=== PATIENT | male | born 1950 | race Caucasian/White ===

== ENCOUNTER 2024-05-22 14:42 | Inpatient (IN) ==
--- NOTE | 2024-05-22 15:06 | Emergency Department Note ---
Impression & Plan Complicated UTI (urinary tract infection), Bacteremia, Acute hyponatremia ED Provider Note NAME: DEEP FOSTER AGE: 74 SEX: M : 1950 ARRIVES VIA: Walk-In INFORMANT: Patient ED PROVIDER(S): Jonathan Wallace DO CHIEF COMPLAINT: Gram-negative bacilli and blood HPI: Patient is a 74-year-old male who presents to the ER as at the end of March he was having issues with constipation and urinary retention. He had a Lopez placed for about 10 days and following this attempted to straight cath. He was doing this under the guidance of urology. He ended up having a fever last week until today. He has been on 2 different types of antibiotics. His blood cultures grew out gram-negative bacilli and were currently still waiting for these to differentiate and consequently patient was called back to the ER for admission. He denies any headache or change in vision. He does feel weak and rundown but better than 2 days ago. No chest pain or shortness of breath. No belly pain. No dysuria, urgency, or frequency currently. ADDITIONAL HISTORY OBTAINED: Per HPI Chronic Medical/Social Conditions Affecting Care: Per HPI PAST MEDICAL HISTORY:See Below PAST SURGICAL HISTORY:See Below FAMILY HISTORY:See Below SOCIAL HISTORY:See Below HOME MEDICATIONS:See Below ALLERGIES:See Below VITALS:See Below PHYSICAL EXAMINATION: GENERAL: Sitting up in bed, alert, well appearing, well nourished, no distress, non-toxic EYE EXAM: normal conjunctiva. OROPHARYNX: mucous membranes are moist LUNGS: Clear to auscultation. Normal chest wall mechanics HEART: no murmurs, S1 normal and S2 normal ABDOMEN: abdomen soft, non-tender, normo-active bowel sounds, no masses, no rebound or guarding. BACK: Back is symmetrical on inspection and there is no deformity, no midline tenderness, no CVA tenderness. SKIN: no rashes and no bruising UPPER EXTREMITIES: upper extremities are grossly normal. LOWER EXTREMITIES: No pitting edema. NEURO EXAM: Normal sensorium, cranial nerves II-XII grossly intact, normal speech, no gross weakness of arms, no gross weakness of legs. MEDICAL DECISION MAKING: Patient is a 74-year-old male who was called back to the ER for bacteremia as he was just recently here and blood cultures were positive. He is currently on antibiotics since is feeling slightly better. IV was established blood work was obtained. Labs show no significant leukocytosis or anemia. BMP along LFTs bilirubin was unremarkable. Lactate was normal. Mag was normal. Pro-Adarsh normal. Troponin was unremarkable. UA with bacteria whites and reds. Consults/Care Managements Discussions: Per MDM Triage Nursing notes reviewed. Limited review of prior medical records performed Vital Signs: reviewed and remarkable for HTN Differential diagnosis: Differential diagnosis: Etiologies such as viral syndrome, otitis, pharyngitis, pneumonia, influenza, meningitis, urinary tract infection, sepsis, bacteremia, as well as others were entertained. ER treatment provided: See below Diagnostics interpreted by me include EKG and cardiac monitoring as listed below: -Cardiac Monitoring: An order was placed for continuous cardiac monitoring. The monitor shows a rate of 70 with sinus rhythm. -ECG: none -Laboratory studies:Interpreted by me as stated above in MDM and shown below. Imaging studies: Xrays: As interpreted by me:none CTs show: none Procedures:none Critical Care: None Past Med/Surg History Problem List (Updated 05/22/24 @ 20:22 by Jonathan Wallace DO) Acute hyponatremia (Acute) Bacteremia (Acute) Complicated UTI (urinary tract infection) (Acute) Benign localized prostatic hyperplasia with lower urinary tract symptoms (LUTS) Medical History (Updated 05/22/24 @ 20:22 by Jonathan Wallace DO) PVC (premature ventricular contraction) Idiopathic polyneuropathy Hypertension Arthritis Elevated PSA Stomach ulcer Lentigo maligna Surgical History (Updated 05/22/24 @ 17:08 by Maren Salinas PA-C) History of eye surgery History of total hip replacement History of appendectomy Family History Uncle Prostate cancer paternal uncle Grandfather (Paternal) Prostate cancer Father Heart disease Hypertension Social History Smoking Status: Former smoker Hx Alcohol Use: Yes Hx Substance Use: No Preferred Language: Cymraes Communication Ability: Effective Visual Impairment: No Limitations Hearing Ability: Normal Belt Operator Required: No Beliefs That Will Affect Care: None marital status: Current Living Situation: Spouse current occupational status: retired Feels Safe at Home: Yes Diet: regular Allergies Allergies Allergy/AdvReac Type Severity Reaction Status Date / Time No Known Allergies Allergy Verified 05/22/24 16:10 Home Meds Home Medications Medication Instructions Recorded Confirmed allopurinol 300 mg tablet 300 mg PO QPM 07/04/19 05/22/24 acetaminophen 650 mg 650 mg PO Q8H PRN Pain 07/08/19 05/22/24 tablet,extended release nebivolol 5 mg tablet (Bystolic) 5 mg PO QPM 05/30/20 05/22/24 Saccharomyces boulardii 250 mg 250 mg PO DAILY 02/10/22 05/22/24 capsule (Florastor) loratadine 10 mg tablet (Claritin) 10 mg PO DAILY PRN Allergy Symptoms 01/06/23 05/22/24 ascorbic acid (vitamin C) 500 mg 500 mg PO Q OTHER DAY 05/07/24 05/22/24 tablet (Vitamin C) cholecalciferol (vitamin D3) 25 25 mcg PO DAILY 05/07/24 05/22/24 mcg (1,000 unit) tablet (Vitamin D3) cyanocobalamin (vitamin B-12) 1,000 mcg PO DAILY 05/07/24 05/22/24 1,000 mcg tablet (Vitamin B-12) polyethylene glycol 3350 17 gram 17 g PO DAILY Constipation 05/07/24 05/22/24 oral powder packet (Miralax) amoxicillin 875 mg-potassium 1 tab PO BID 05/22/24 05/22/24 clavulanate 125 mg tablet artificial 1 drp ophthalmic (eye) 5XD PRN Dry 05/22/24 05/22/24 tears(jailqkp-aoxhqsgi-blrfuiu) Eye(S) 0.1 %-0.3 %-0.2 % eye drops (GenTeal Tears Moderate) docusate sodium 100 mg capsule 100 mg PO BID 05/22/24 05/22/24 (Colace) Results & Data (ED) Vital Signs Vital Signs - 24 hr 05/22/24 14:44 05/22/24 14:59 05/22/24 14:59 Temperature 36.6 C 36.7 C Temperature Source Oral Oral Pulse Rate 67 65 Pulse Rate from SpO2 Sensor Respiratory Rate 18 18 Respiratory Effort / Characteristics Non-Labored Spontaneous Respiratory Depth Normal Respiratory Pattern Regular Blood Pressure 145/88 H Blood Pressure Mean 107 Pulse Oximetry 96 99 Oxygen Delivery Method Room Air Room Air Sepsis Recent Fever Within 48 Hours Yes Sepsis New/Unexplained Change in Mental Status N/A Sepsis Action Taken by Nursing No Action Required 05/22/24 15:03 05/22/24 15:15 05/22/24 15:33 Temperature Temperature Source Pulse Rate 63 67 58 L Pulse Rate from SpO2 Sensor 64 58 L Respiratory Rate 21 16 Respiratory Effort / Characteristics Respiratory Depth Respiratory Pattern Blood Pressure 143/90 H 138/70 Blood Pressure Mean 107 92 Pulse Oximetry 95 95 Oxygen Delivery Method Room Air Room Air Sepsis Recent Fever Within 48 Hours Sepsis New/Unexplained Change in Mental Status Sepsis Action Taken by Nursing 05/22/24 15:51 05/22/24 16:06 05/22/24 16:18 Temperature Temperature Source Pulse Rate 60 58 L 60 Pulse Rate from SpO2 Sensor 57 L 55 L 57 L Respiratory Rate 16 22 16 Respiratory Effort / Characteristics Respiratory Depth Respiratory Pattern Blood Pressure 124/72 118/71 124/71 Blood Pressure Mean 89 86 88 Pulse Oximetry 98 99 97 Oxygen Delivery Method Room Air Room Air Room Air Sepsis Recent Fever Within 48 Hours Sepsis New/Unexplained Change in Mental Status Sepsis Action Taken by Nursing 05/22/24 16:30 Temperature Temperature Source Pulse Rate 57 L Pulse Rate from SpO2 Sensor 57 L Respiratory Rate 20 Respiratory Effort / Characteristics Respiratory Depth Respiratory Pattern Blood Pressure 126/78 Blood Pressure Mean 94 Pulse Oximetry 96 Oxygen Delivery Method Room Air Sepsis Recent Fever Within 48 Hours Sepsis New/Unexplained Change in Mental Status Sepsis Action Taken by Nursing Laboratory Data 05/22/24 14:56 05/22/24 14:56 Lab Results 05/22/24 05/22/24 Range/Units 14:56 15:05 WBC 7.06 (4.8-10.8) K/ul RBC 4.81 (4.70-6.10) M/uL Hgb 15.5 (14.0-18.0) g/dl Hct 46.8 (42.0-52.0) % MCV 97.3 (80.0-100.0) fL MCH 32.2 (25.0-34.0) pg MCHC 33.1 (32.0-36.0) g/dL RDW Std Deviation 45.7 (36.4-46.3) fL RDW Coeff of Keeley 12.8 (11.5-14.5) % Plt Count 183 (130-400) K/uL MPV 9.3 L (9.4-12.4) fL Immature Gran % (Auto) 0.4 % Neut % (Auto) 59.8 % Lymph % (Auto) 24.9 % [place] % (Auto) 12.2 % Eos % (Auto) 2.0 % Baso % (Auto) 0.7 % Neut # (Auto) 4.22 (1.40-6.50) K/uL Lymph # (Auto) 1.76 (1.20-3.40) K/uL [place] # (Auto) 0.86 H (0.11-0.59) K/uL Eos # (Auto) 0.14 (0.00-0.50) K/uL Baso # (Auto) 0.05 (0.00-0.20) K/uL Immature Gran # (Auto) 0.03 (0.01-0.20) K/uL Sodium 135 L (136-145) mmol/L Potassium 4.1 (3.5-5.1) mmol/L Chloride 102 (98-107) mmol/L Carbon Dioxide 27 (21-32) mmol/L Anion Gap 6 (3-11) BUN 15 (6-23) mg/dl Creatinine 0.79 (0.6-1.4) mg/dl Est Cr Clr Drug Dosing 89.9 ml/min Est GFR ( Amer) 101.1 ml/min Est GFR (Non-Af Amer) 87.2 ml/min BUN/Creatinine Ratio 19.0 (10-20) Glucose 99 (70-99(Fasting)) mg/dl Lactate 1.0 (0.4-2.0) mmol/L Calcium 9.5 (8.6-10.3) mg/dl Magnesium 2.2 (1.7-2.4) mg/dl Total Bilirubin 0.7 (0.2-1.0) mg/dl Direct Bilirubin 0.1 (0-0.2) mg/dl AST 21 (13-39) U/L ALT 21 (7-52) U/L Alkaline Phosphatase 55 (34-104) U/L Troponin I High Sens 4.1 (0-20) pg/ml Total Protein 7.2 (6.0-8.3) gm/dl Albumin 4.1 (3.4-5.0) gm/dl Procalcitonin 0.42 (0-0.5) ng/ml Urine Color See Comment Urine Appearance Slightly Cloudy (Clear) Urine pH Not Reportable Ur Specific [place] 1.005 (1.000-1.030) Urine Protein Not Reportable Urine Glucose (UA) Not Reportable Urine Ketones Not Reportable Urine Blood Not Reportable Urine Nitrite Not Reportable Urine Bilirubin Not Reportable Urine Urobilinogen Not Reportable Ur Leukocyte Esterase Not Reportable Urine RBC >20 H (0-2) /hpf Urine WBC 6-10 H (0-5) /hpf Ur Epithelial Cells 3-5 H (0-2) /hpf Urine Bacteria 1+ H (None Seen) Administered Medications Discontinued Medications Piperacillin Sod/Tazobactam Sod (Zosyn) 4.5 gm in 100 mls @ 200 mls/hr IV NOW ONE Stop: 05/22/24 15:17 Last Infusion: 05/22/24 16:15 Dose: Infused Documented By: [facility] Admin: 05/22/24 15:29 Dose: 200 mls/hr Documented By: [facility] [place] Discharge Plan Visit Data Chief Complaint: Abnormal Labs/Diagnostic Testing Stated Complaint: BACTERIA IN BLOOD IN URINE ED Provider: Jonathan Wallace Discharge Problem: Complicated UTI (urinary tract infection), Bacteremia, Acute hyponatremia Patient Disposition: Admitted As Inpatient Discharge Instructions Interventions: ED Discharge Assessment Last Done: 05/22/24 19:58
[2024-05-22 15:20] LABS: Basophils # (auto) 0.05 K/uL (0.00-0.20); Basophils % (auto) 0.7 %; Eosinophils # (auto) 0.14 K/uL (0.00-0.50); Hematocrit (blood only) 46.8 % (42.0-52.0); Hemoglobin 15.5 g/dl (14.0-18.0); Immature Granulocytes # (auto) 0.03 K/uL (0.01-0.20); Immature Granulocytes % (auto) 0.4 %; Lymphocytes # (auto) 1.76 K/uL (1.20-3.40); Lymphocytes % (auto) 24.9 %; Mean Corpuscular Hemoglobin 32.2 pg (25.0-34.0); Mean Corpuscular Hgb Conc 33.1 g/dL (32.0-36.0); Mean Corpuscular Volume 97.3 fL (80.0-100.0); Mean Platelet Volume 9.3 fL (9.4-12.4); Monocytes # (auto) 0.86 K/uL (0.11-0.59); Monocytes % (auto) 12.2 %; Neutrophils # (auto) 4.22 K/uL (1.40-6.50); Neutrophils % (auto) 59.8 %; Platelet Count 183 K/uL (130-400); RDW Coefficient of Variation 12.8 % (11.5-14.5); RDW Standard Deviation 45.7 fL (36.4-46.3); Red Blood Count 4.81 M/uL (4.70-6.10); White Blood Count 7.06 K/ul (4.8-10.8)
[2024-05-22 15:28] LABS: Appearance Urine Slightly Cloudy (Clear)
[2024-05-22 15:29] LABS: Specific Gravity Urine 1.005 (1.000-1.030)
[2024-05-22] MEDS: PIPERACILLIN/TAZOBACTAM 4.5 GM/100 ML BAG IV ONE (15:29)
[2024-05-22 15:33] LABS: Bacteria Urine 1+ (None Seen); RBC Urine >20 /hpf (0-2)
[2024-05-22 15:42] LABS: Albumin Level 4.1 gm/dl (3.4-5.0); Bilirubin Direct 0.1 mg/dl (0-0.2); Bilirubin,Total 0.7 mg/dl (0.2-1.0); Calcium 9.5 mg/dl (8.6-10.3); Creatinine Clr Calc Pharmacy 89.9 ml/min; Est GFR (African American) 101.1 ml/min; Est GFR (Non-African American) 87.2 ml/min; Magnesium 2.2 mg/dl (1.7-2.4); Potassium 4.1 mmol/L (3.5-5.1); Total Protein 7.2 gm/dl (6.0-8.3)
[2024-05-22 15:48] LABS: Troponin I High Sensitivity 4.1 pg/ml (0-20)
--- NOTE | 2024-05-22 16:21 | History & Physical Report ---
Date of Service May 22, 2024 Assessment & Plan (1) Bacteremia: (2) Complicated UTI (urinary tract infection): (3) Benign localized prostatic hyperplasia with lower urinary tract symptoms (LUTS): Plan: This is a 74yo M with a PMH of BPH, urinary retention following with [facility] called back to ED today for positive preliminary blood cultures. Was started on cefdinir on 05/19 but urine culture grew Klyuvera resistant to third generation cephalosporin but sensitive to Augmentin (switched on 05/21) Pharmacy called to return to ED today after 05/19 blood clx showed gram negative bacilli Blood cultures also showed CONS in 1/4 bottles which is likely a contamination Continue Zosyn until blood cultures finalize Ongoing hematuria since self cathing 1 week ago, meyer now in place - Hgb stable, VSS. Has not yet seen urologist and is requesting to see while admitted. Consulted [facility] urology (4) Hypertension: Plan: Continue Nebivolol (brought from home, sent to pharmacy for labeling) DVT Ppx: SCDs in setting of hematuria Code status: FULL PCP: Gavin ([facility]) Dispo: observation med surg Patient seen in collaboration with Dr. Turcios. Please see addendum. I spent a total of 75 minutes coordinating, documenting, and providing care for this patient excluding time spent in the performance of separately billed services. History of Present Illness Chief Complaint: abn labs Primary Care Provider: Drake Alonso M.D. This is a 74yo M with a PMH of BPH, urinary retention following with [facility]rology called back to ED today for positive preliminary blood cultures. Has been in ED multiple times this month for urinary issues. Was seen in ED on 05/07 with meyer catheter placement. Had a trial to void at urology office and was sent home with instruction to straight cath, which he was able to do twice. The third time, he was met with resistance and started to bleed. Returned to ED on 05/19 for urinary symptoms and attempted a straight cath after per urology recommendation. Was discharged home on cefdinir course and instruction to follow up with urology. With preliminary positive blood cultures, ED pharmacy called patient yesterday and instructed him to switch to Augmentin. Has taken 3 doses. Was then called again today by pharmacy and directed to come back to ED for IV abx and awaiting finalization of blood cultures. Endorses fever since then despite antibiotics. Tmax 100 F. Preliminary blood cultures from 05/19 grew out gram negative bacilli. Still feels weak and rundown but better than 2 days ago. No fever today. Nausea has resolved. No headache, CP, SOB, N/V, abd pain, dysuria, diarrhea or constipation. Patient mentions pain in his lower back when he feels a "blockage" in catheter and improves when meyer is irrigated. Allergies Allergy/AdvReac Type Severity Reaction Status Date / Time No Known Allergies Allergy Verified 05/22/24 16:10 Home Medications Medication Instructions Recorded Confirmed Type allopurinol 300 mg tablet 300 mg PO QPM 07/04/19 05/22/24 History acetaminophen 650 mg 650 mg PO Q8H PRN Pain 07/08/19 05/22/24 History tablet,extended release nebivolol 5 mg tablet (Bystolic) 5 mg PO QPM 05/30/20 05/22/24 History Saccharomyces boulardii 250 mg 250 mg PO DAILY 02/10/22 05/22/24 History capsule (Florastor) loratadine 10 mg tablet (Claritin) 10 mg PO DAILY PRN Allergy Symptoms 01/06/23 05/22/24 History ascorbic acid (vitamin C) 500 mg 500 mg PO Q OTHER DAY 05/07/24 05/22/24 History tablet (Vitamin C) cholecalciferol (vitamin D3) 25 25 mcg PO DAILY 05/07/24 05/22/24 History mcg (1,000 unit) tablet (Vitamin D3) cyanocobalamin (vitamin B-12) 1,000 mcg PO DAILY 05/07/24 05/22/24 History 1,000 mcg tablet (Vitamin B-12) polyethylene glycol 3350 17 gram 17 g PO DAILY Constipation 05/07/24 05/22/24 History oral powder packet (Miralax) amoxicillin 875 mg-potassium 1 tab PO BID 05/22/24 05/22/24 History clavulanate 125 mg tablet artificial 1 drp ophthalmic (eye) 5XD PRN Dry 05/22/24 05/22/24 History tears(ljitarg-ehfoeyoq-gmogonb) Eye(S) 0.1 %-0.3 %-0.2 % eye drops (GenTeal Tears Moderate) docusate sodium 100 mg capsule 100 mg PO BID 05/22/24 05/22/24 History (Colace) Past Med/Surg History Problem List (Updated 05/22/24 @ 17:08 by Maren Salinas PA-C) Bacteremia Complicated UTI (urinary tract infection) Benign localized prostatic hyperplasia with lower urinary tract symptoms (LUTS) Medical History (Updated 05/22/24 @ 17:08 by Maren Salinas PA-C) PVC (premature ventricular contraction) Idiopathic polyneuropathy Hypertension Arthritis Elevated PSA Stomach ulcer Lentigo maligna Surgical History (Updated 05/22/24 @ 17:08 by Maren Salinas PA-C) History of eye surgery History of total hip replacement History of appendectomy Family History Uncle Prostate cancer paternal uncle Grandfather (Paternal) Prostate cancer Father Heart disease Hypertension Social History Smoking Status: Former smoker Hx Alcohol Use: Yes Hx Substance Use: No Preferred Language: Danish Communication Ability: Effective Visual Impairment: No Limitations Hearing Ability: Normal Payer Specialist Required: No Beliefs That Will Affect Care: None marital status: Current Living Situation: Spouse current occupational status: retired Feels Safe at Home: Yes Diet: regular Review of Systems Review of Systems: At least ten systems reviewed and negative except as noted in the HPI. Physical Exam Physical Exam: Please see Dr. Turcios's addendum for physical exam. Results & Data Results & Data Vital Signs (Past 12 Hours) Vital Signs Temp Pulse Resp BP Pulse Ox O2 Del Method 05/22/24 15:15 67 05/22/24 14:59 65 18 99 Room Air 05/22/24 14:59 36.7 C 05/22/24 14:44 36.6 C 67 18 145/88 H 96 Room Air Laboratory Results Short CBC 05/22/24 Range/Units 14:56 WBC 7.06 (4.8-10.8) K/ul Hgb 15.5 (14.0-18.0) g/dl Hct 46.8 (42.0-52.0) % Plt Count 183 (130-400) K/uL BMP 05/22/24 14:56 Sodium 135 L Potassium 4.1 Chloride 102 Carbon Dioxide 27 BUN 15 Creatinine 0.79 Glucose 99 Calcium 9.5 Liver Function 05/22/24 Range/Units 14:56 Total Bilirubin 0.7 (0.2-1.0) mg/dl Direct Bilirubin 0.1 (0-0.2) mg/dl AST 21 (13-39) U/L ALT 21 (7-52) U/L Alkaline Phosphatase 55 (34-104) U/L Albumin 4.1 (3.4-5.0) gm/dl Urine 05/22/24 Range/Units 15:05 Urine Color See Comment Urine Appearance Slightly Cloudy (Clear) Urine pH Not Reportable Ur Specific [place] 1.005 (1.000-1.030) Urine Protein Not Reportable Urine Glucose (UA) Not Reportable Supervising Physician Co-Signing Physician Notes Patient was seen and examined with Maren Salinas PA-C at bedside. Chart reviewed. Case discussed with Maren TELLES and agree with the documentation above. In summary, this is a 74 year old male with HTN, BPH, urinary retention on meyer who was called back to the ED for bacteremia. He was in the ED on 05/19 for UTI and discharged on cefdinir, it was changed to Augmentin yesterday morning after the urine culture showed Klyuvera resistant to third generation cephalosporin but sensitive to Augmentin. He was called today after blood clx showed GNB, also showed CONS in 1/4 bottles which is likely a contamination. States he is still having intermittent fever at home, but overall feeling better. Continues to have hematuria with clots and did manual irrigation at home, last done 2 pm today. Family requesting to see Dr Palmer. Repeat UA and blood clx were sent from ED and was started on zosyn. Will admit with iv zosyn, await final blood clx r esults, follow up on repeat clx results. Consult urology. Rest as per the note above. On exam- General: Lying comfortably in bed, not in distress, on room air HEENT: EOMI, PUMA, MMM Chest: Clear breath sounds bilaterally, no wheezes or crackles CVS: Regular rate and rhythm, normal heart sounds, no murmur Abdomen: Soft, non tender, not distended, normal bowel sounds Neuro: Awake, alert, oriented, conversing well, non focal Extremities: No cyanosis, clubbing or edema Genitourinary: Meyer with hematuria
[2024-05-22] MEDS ORDERED: ONDANSETRON INJ 2 MG/ML 2 ML VIAL IV PRN (20:15)
[2024-05-22] MEDS ORDERED: LORATADINE 10 MG TAB PO PRN (20:15)
[2024-05-22] MEDS ORDERED: ARTIFICIAL TEARS OP PRN (20:19)
[2024-05-22] MEDS ORDERED: NEBIVOLOL 5 MG PO SCH (21:00)
[2024-05-22] MEDS ORDERED: PIPERACILLIN/TAZOBACTAM 4.5 GM/100 ML BAG IV ONE (21:00)
[2024-05-22] MEDS: DOCUSATE SODIUM 100 MG CAP PO SCH (21:12)
[2024-05-22] MEDS: allopurinoL 300 MG TAB PO SCH (21:12)
[2024-05-22] MEDS: PIPERACILLIN/TAZOBACTAM 4.5 GM in DEXTROSE 5% MINI-B 100 ML IV SCH (21:13)
[2024-05-22] MEDS: NEBIVOLOL 5 MG PO SCH (21:28)
[2024-05-23] MEDS: ACETAMINOPHEN 325 MG TAB PO PRN (04:27)
[2024-05-23 06:32] LABS: Hematocrit (blood only) 40.9 % (42.0-52.0); Hemoglobin 13.7 g/dl (14.0-18.0); Mean Corpuscular Hemoglobin 32.2 pg (25.0-34.0); Mean Corpuscular Hgb Conc 33.5 g/dL (32.0-36.0); Mean Corpuscular Volume 96.2 fL (80.0-100.0); Mean Platelet Volume 9.3 fL (9.4-12.4); Platelet Count 167 K/uL (130-400); RDW Coefficient of Variation 12.5 % (11.5-14.5); RDW Standard Deviation 44.4 fL (36.4-46.3); Red Blood Count 4.25 M/uL (4.70-6.10); White Blood Count 5.91 K/ul (4.8-10.8)
[2024-05-23 07:30] LABS: Calcium 8.6 mg/dl (8.6-10.3); Potassium 4.5 mmol/L (3.5-5.1)
[2024-05-23 07:36] LABS: BUN Creatinine Ratio 16.5 (10-20); Creatinine Clr Calc Pharmacy 89.9 ml/min; Est GFR (African American) 101.1 ml/min; Est GFR (Non-African American) 87.2 ml/min
[2024-05-23] MEDS: CYANOCOBALAMIN (B-12) 500 MCG TABLET PO SCH (07:47)
[2024-05-23] MEDS: CHOLECALCIFEROL 25 MCG (1000 UNITS) TAB PO SCH (07:47)
[2024-05-23] MEDS: SACCHAROMYCES BOULARDII 250 MG CAP PO SCH (07:47)
[2024-05-23] MEDS: ASCORBIC ACID 500 MG TAB PO SCH (07:48)
[2024-05-23] MEDS: POLYETHYLENE (MIRALAX) 17 GM PACK PO SCH (07:48)
--- NOTE | 2024-05-23 09:10 | Urology Consultation ---
Date of Consultation May 23, 2024 Assessment & Plan (1) Hematuria: (2) Complicated UTI (urinary tract infection): (3) Bacteremia: (4) Benign localized prostatic hyperplasia with lower urinary tract symptoms (LUTS): 74 yo/M with BPH and urinary retention admitted for complicated UTI/positive blood cultures Urology is consulted for hematuria Afebrile, stable vitals Labs todaycreatinine 0.79, no leukocytosis, hemoglobin 13.7 Urine culture 05/19/2024 with Kluyvera cryocrescens Blood cultures 05/19/2024 with coag negative staph and gram-negative bacilli Repeat urine and blood cultures (05/22) are pending Continue with broad-spectrum antibiotics and narrow per sensitivity data when available Patient has had hematuria since catheter replacement, but seem to be improving Bilateral hydronephrosis has improved with Lopez catheter in place Recommend maintain Lopez catheter for management of urinary retentionplan to maintain until urology follow-up Okay to gently hand irrigate catheter as needed for catheter obstruction Will plan for cystoscopy as an outpatient after acute infection has resolved will follow, please contact our service with any additional questions or concerns History of Present Illness Reason for Consultation: Hematuria Attending Physician: Mel Henson MD History of Present Illness This is a 74-year-old male with past medical history of BPH and urinary retention who was called back to the emergency department today for positive preliminary blood cultures. He has been to the ED multiple times recently for urinary issues. He was seen in ED on 05/07 for acute urinary retention and Lopez catheter was placed. He failed voiding trial on 05/17/2024 in the urology office, but was taught CIC to perform at home. Patient had difficulty with CIC at home and returned to the urology office with elevated PVR, Lopez catheter was placed and drained bloody urine. He returned to the emergency department on 05/19/2024 with concern for fevers at home. His urinalysis was notable for 3+ blood, 2+ LE with pyuria, urine and blood cultures were drawn. He was treated with IV ceftriaxone in ED and was discharged to home on cefdinir. He was called back to the emergency department on 05/22/2024 due to prelim positive blood cultures. Labs todaycreatinine 0.79, WBC 5.91, hemoglobin 13.7 Urine culture 05/19/2024 with Kluyvera cryocrescens Blood cultures 05/19/2024 with coag negative staph and gram-negative bacilli Urine culture 05/22/2024 pending Blood culture 05/22/2024 pending On IV Zosyn CT A/P 05/07 w/ con showed prostatomegaly with evidence of outlet obstruction resulting in distended urinary bladder with mild to moderate bilateral hydroureteronephrosis. CT A/P 05/19 wo con showed no hydronephrosis, Lopez catheter terminates in the urinary bladder, wall thickening of the urinary bladder noted. Patient seen and examined at bedside this morning. He is awake and sitting up in bed. Reports he generally feels okay. Denies suprapubic or flank discomfort. He reports hematuria is ongoing since his catheter replacement in the urology office, but reports that it seems to be improving. He reports his urine was previously a dark [place]. His Lopez is patent and draining a thin, translucent light to medium palomo red urine, no clots noted. He denies requiring manual irrigation overnight. Denies nausea, vomiting, fever or chills at present. Allergies Allergy/AdvReac Type Severity Reaction Status Date / Time No Known Allergies Allergy Verified 05/22/24 16:10 Home Medications Medication Instructions Recorded Confirmed Type allopurinol 300 mg tablet 300 mg PO QPM 07/04/19 05/22/24 History acetaminophen 650 mg 650 mg PO Q8H PRN Pain 07/08/19 05/22/24 History tablet,extended release nebivolol 5 mg tablet (Bystolic) 5 mg PO QPM 05/30/20 05/22/24 History Saccharomyces boulardii 250 mg 250 mg PO DAILY 02/10/22 05/22/24 History capsule (Florastor) loratadine 10 mg tablet (Claritin) 10 mg PO DAILY PRN Allergy Symptoms 01/06/23 05/22/24 History ascorbic acid (vitamin C) 500 mg 500 mg PO Q OTHER DAY 05/07/24 05/22/24 History tablet (Vitamin C) cholecalciferol (vitamin D3) 25 25 mcg PO DAILY 05/07/24 05/22/24 History mcg (1,000 unit) tablet (Vitamin D3) cyanocobalamin (vitamin B-12) 1,000 mcg PO DAILY 05/07/24 05/22/24 History 1,000 mcg tablet (Vitamin B-12) polyethylene glycol 3350 17 gram 17 g PO DAILY Constipation 05/07/24 05/22/24 History oral powder packet (Miralax) amoxicillin 875 mg-potassium 1 tab PO BID 05/22/24 05/22/24 History clavulanate 125 mg tablet artificial 1 drp ophthalmic (eye) 5XD PRN Dry 05/22/24 05/22/24 History tears(tmufwli-svbrpkvt-xvfqvaz) Eye(S) 0.1 %-0.3 %-0.2 % eye drops (GenTeal Tears Moderate) docusate sodium 100 mg capsule 100 mg PO BID 05/22/24 05/22/24 History (Colace) Patient History Medical History PVC (premature ventricular contraction) Idiopathic polyneuropathy Hypertension Arthritis Elevated PSA Stomach ulcer Lentigo maligna Surgical History History of eye surgery History of total hip replacement History of appendectomy Family History Uncle Prostate cancer paternal uncle Grandfather (Paternal) Prostate cancer Father Heart disease Hypertension Social History Smoking Status: Heavy tobacco smoker Tobacco Type: Cigarettes and Smokeless Tobacco (Dip or Chew) Smoking End Date: 2001; Do You Dip or Chew Tobacco: No; Hx Alcohol Use: Yes Alcohol type: wine Hx Substance Use: No Preferred Language: Portuguese Communication Ability: Effective Visual Impairment: No Limitations Hearing Ability: Normal Industrial Insulator Required: No Beliefs That Will Affect Care: None marital status: Current Living Situation: Spouse current occupational status: retired Other Information That Helps Us Care for You: No Feels Safe at Home: Yes Safety Concerns: Feels Safe At This Time Diet: regular Assistive Devices: Glasses Review of Systems Review of Systems: All systems reviewed & are unremarkable except as noted in HPI & below Physical Exam Constitutional: well developed and well nourished; no acute distress Respiratory: normal respiratory effort; no respiratory distress and no labored breathing Gastrointestinal (Abdomen): Inspection/Auscultation: abdomen normal to inspection Musculoskeletal: Head/Neck/Chest: normocephalic Neurologic: moves all extremities and awake Psychiatric: Orientation: alert and oriented x 3 Genitourinary: Lopez patent and draining thin, translucent light/medium palomo red urine, no clots Results & Data Vital Signs (Past 12 Hours) Vital Signs Temp Pulse Resp BP Pulse Ox O2 Del Method 05/23/24 07:02 36.6 C 55 L 16 103/65 99 Room Air PG Care Time/CCT Total # of Minutes Spent Total Time Spent with Patient: Total time spent is greater than 50% in coordination of care (as documented) at patient's floor/unit and/or counseling patient: Coding Level of Care Code 89958 INT INP/OBS CARE 2/55MIN Diagnoses Hematuria R31.9 Complicated UTI (urinary tract infection) N39.0 Bacteremia R78.81 Benign localized prostatic hyperplasia with lower urinary tract symptoms (LUTS) N40.1
--- NOTE | 2024-05-23 09:15 | Hospitalist Progress Note ---
Date of Service May 23, 2024 Assessment & Plan (1) Bacteremia: (2) Complicated UTI (urinary tract infection): (3) Benign localized prostatic hyperplasia with lower urinary tract symptoms (LUTS): (4) Hypertension: Plan Pt is a 74yo M with a PMHx significant for BPH, urinary retention following with [facility] urology who was called back to the ED for positive preliminary blood cultures. Bacteremia Complicated UTI Chronic Indwelling meyer catheter BPH Presented with fever to the ED on 05/19, treated with IV rocephin for a complicated UTI and discharged home with po cefdinir Was started on cefdinir on 05/19 but urine culture grew Klyuvera intermediate status to third generation cephalosporin but sensitive to Augmentin (switched on 05/21) ED called pt to return to ED today after 05/19 blood cx showed gram negative bacilli in 1/4 bottles Blood cultures also showed CONS in 1/4 bottles which is likely a contamination Serology positive for MSSA and staph epidermis UA repeated this admission and suggestive of infection, urine Cx growing once more (05/22) Blood Cx x 2 sets repeated this admission as well on 05/22 Continue IV Zosyn until blood cultures finalize ID consulted, appreciate further recs Hematuria Ongoing hematuria since self cathing 1 week ago, meyer now in place Hgb stable but noted drop overnight on 05/22 from hgb 15.5 to 13.7 Per admitting team, has not yet seen urologist and is requesting to see while a dmitted [facility] urology consulted, appreciate further recs Monitor H/H Hypertension Continue Nebivolol (brought from home, sent to pharmacy for labeling) Continue to monitor Continue other home meds as ordered DVT Ppx: SCDs in setting of hematuria Code status: FULL PCP: Gavin ([facility]) Dispo: PT/OT ordered for further recs Admission and Anticipated Discharge Date Admission Date: May 22, 2024 Subjective Pt was seen laying in bed. States that the hematuria is improving in color, was darker with clots previously. Denies recent fevers. Review of Systems Review of Systems: All systems reviewed & are unremarkable except as noted in Subjective Physical Exam Physical Exam: General: Alert, oriented. No acute distress Skin: No noted rashes or bruises Psych: Appropriate mood and affect Neuro: No gross deficits while laying in bed HEENT: NC/AT Chest: Nontender to palpation. CV: RRR Resp: Breath sounds clear bilaterally, no increased effort of breathing. Abdomen: Soft, nontender, nondistended. Extremities: No edema in lower extremities bilaterally Results & Data Results & Data Vital Signs (Past 12 Hours) Vital Signs Temp Pulse Resp BP Pulse Ox O2 Del Method 05/23/24 07:02 36.6 C 55 L 16 103/65 99 Room Air
[2024-05-24 06:33] LABS: Basophils # (auto) 0.06 K/uL (0.00-0.20); Basophils % (auto) 1.1 %; Eosinophils # (auto) 0.09 K/uL (0.00-0.50); Eosinophils % (auto) 1.6 %; Hematocrit (blood only) 41.4 % (42.0-52.0); Immature Granulocytes # (auto) 0.03 K/uL (0.01-0.20); Immature Granulocytes % (auto) 0.5 %; Lymphocytes # (auto) 2.21 K/uL (1.20-3.40); Lymphocytes % (auto) 39.7 %; Mean Corpuscular Hemoglobin 32.5 pg (25.0-34.0); Mean Corpuscular Hgb Conc 33.8 g/dL (32.0-36.0); Mean Corpuscular Volume 96.1 fL (80.0-100.0); Mean Platelet Volume 9.1 fL (9.4-12.4); Monocytes # (auto) 0.61 K/uL (0.11-0.59); Neutrophils # (auto) 2.57 K/uL (1.40-6.50); Neutrophils % (auto) 46.1 %; Platelet Count 172 K/uL (130-400); RDW Coefficient of Variation 12.5 % (11.5-14.5); RDW Standard Deviation 44.1 fL (36.4-46.3); Red Blood Count 4.31 M/uL (4.70-6.10); White Blood Count 5.57 K/ul (4.8-10.8)
[2024-05-24 07:22] LABS: Calcium 8.6 mg/dl (8.6-10.3); Magnesium 2.2 mg/dl (1.7-2.4); Potassium 4.1 mmol/L (3.5-5.1)
[2024-05-24 07:28] LABS: BUN Creatinine Ratio 16.1 (10-20); Creatinine Clr Calc Pharmacy 76.4 ml/min; Est GFR (African American) 92.1 ml/min; Est GFR (Non-African American) 79.5 ml/min
--- NOTE | 2024-05-24 09:05 | Hospitalist Progress Note ---
Date of Service May 24, 2024 Assessment & Plan (1) Bacteremia: (2) Complicated UTI (urinary tract infection): (3) Benign localized prostatic hyperplasia with lower urinary tract symptoms (LUTS): (4) Hypertension: Plan Pt is a 74yo M with a PMHx significant for BPH, urinary retention following with [facility] urology who was called back to the ED for positive preliminary blood cultures. Poss. Bacteremia Complicated UTI - CAUTI Chronic Indwelling meyer catheter BPH Presented with fever to the ED on 05/19, treated with IV rocephin for a complicated UTI and discharged home with po cefdinir Was started on cefdinir on 05/19 but urine culture grew Klyuvera intermediate status to third generation cephalosporin but sensitive to Augmentin (switched on 05/21) ED called pt to return to ED after 05/19 blood cx showed gram negative bacilli in 1/4 bottles Blood cultures also showed CONS in 1/4 bottles which is likely a contamination Serology positive for MSSA and staph epidermis UA repeated this admission , Ucultx (05/22) - negative Blood Cx x 2 sets repeated this admission as well on 05/22 - NGTD Continued IV Zosyn while hospitalized ID consulted, appreciate further recs - recommend treatment for CAUTI caused by Klyvera with Bactrim DS bid (total abx course to be 10 days). Blood cultx likely contaminant. Hematuria hematuria since self cathing 1 week ago, meyer now in place Hgb stable but noted drop overnight on 05/22 from hgb 15.5 to 13.7 Hematuria now resolved Current Hgb 14 [facility] urology consulted - Bilateral hydronephrosis has improved with Meyer catheter in place Recommend maintain Meyer catheter for management of urinary retentionplan to maintain until urology follow-up Okay to gently hand irrigate catheter as needed for catheter obstruction Keep outpatient urology follow-up as scheduled to discuss ongoing management Hypertension Continue Nebivolol (brought from home, sent to pharmacy for labeling) Continue to monitor Continue other home meds as ordered DVT Ppx: SCDs in setting of hematuria Code status: FULL PCP: Gavin ([facility]) Admission and Anticipated Discharge Date Admission Date: May 23, 2024 Subjective Pt seen in follow up of hematuria, UTI, Meyer cath Urology consulted Currently pt is laying in bed in NAD Meyer cath placed and draining clear yellow urine Pt says he is feeling well. Denies any fever, chills, chest pain, shortness of breath, abd. pain. He is inquiring about going home. Review of Systems Review of Systems: All systems reviewed & are unremarkable except as noted in Subjective Physical Exam Physical Exam: General: Lying comfortably in bed, not in distress, on room air HEENT: EOMI, PUMA, MMM Chest: Clear breath sounds bilaterally, no wheezes or crackles CVS: Regular rate and rhythm, normal heart sounds, no murmur Abdomen: Soft, non tender, not distended, normal bowel sounds Neuro: Awake, alert, oriented, conversing well, non focal Extremities: No LE edema, moves extremities Genitourinary: Meyer with clear yellow urine Results & Data Results & Data Vital Signs (Past 12 Hours) Vital Signs Temp Pulse Resp BP Pulse Ox O2 Del Method 05/24/24 07:01 36.4 C L 58 L 14 126/78 97 Room Air Laboratory Results 05/24/24 Range/Units 05:48 WBC 5.57 (4.8-10.8) K/ul RBC 4.31 L (4.70-6.10) M/uL Hgb 14.0 (14.0-18.0) g/dl Hct 41.4 L (42.0-52.0) % MCV 96.1 (80.0-100.0) fL MCH 32.5 (25.0-34.0) pg MCHC 33.8 (32.0-36.0) g/dL RDW Std Deviation 44.1 (36.4-46.3) fL RDW Coeff of Keeley 12.5 (11.5-14.5) % Plt Count 172 (130-400) K/uL MPV 9.1 L (9.4-12.4) fL Immature Gran % (Auto) 0.5 % Neut % (Auto) 46.1 % Lymph % (Auto) 39.7 % [place] % (Auto) 11.0 % Eos % (Auto) 1.6 % Baso % (Auto) 1.1 % Neut # (Auto) 2.57 (1.40-6.50) K/uL Lymph # (Auto) 2.21 (1.20-3.40) K/uL [place] # (Auto) 0.61 H (0.11-0.59) K/uL Eos # (Auto) 0.09 (0.00-0.50) K/uL Baso # (Auto) 0.06 (0.00-0.20) K/uL Immature Gran # (Auto) 0.03 (0.01-0.20) K/uL Sodium 139 (136-145) mmol/L Potassium 4.1 (3.5-5.1) mmol/L Chloride 106 (98-107) mmol/L Carbon Dioxide 29 (21-32) mmol/L Anion Gap 4 (3-11) BUN 15 (6-23) mg/dl Creatinine 0.93 (0.6-1.4) mg/dl Est Cr Clr Drug Dosing 76.4 ml/min Est GFR ( Amer) 92.1 ml/min Est GFR (Non-Af Amer) 79.5 ml/min BUN/Creatinine Ratio 16.1 (10-20) Glucose 95 (70-99(Fasting)) mg/dl Calcium 8.6 (8.6-10.3) mg/dl Phosphorus 4.0 (2.5-4.9) mg/dl Magnesium 2.2 (1.7-2.4) mg/dl Medications Administered Current Inpatient Medications Acetaminophen (Acetaminophen 325 Mg Tab) 650 mg PO Q4H PRN PRN Reason: pain/fever Stop: 06/21/24 20:14 Last Admin: 05/24/24 08:09 Dose: 650 mg Allopurinol (Allopurinol 300 Mg Tab) 300 mg PO QPM [facility] Stop: 06/21/24 20:59 Last Admin: 05/23/24 20:35 Dose: 300 mg Artificial Tears (Artificial Tears) 1 drops OP 5XDQ3H PRN PRN Reason: Dry Eye(S) Stop: 06/21/24 20:18 Ascorbic Acid (Ascorbic Acid 500 Mg Tab) 500 mg PO Q2D@0900 [facility] Stop: 06/22/24 08:59 Last Admin: 05/23/24 07:48 Dose: 500 mg Cyanocobalamin (Cyanocobalamin (B-12) 500 Mcg Tablet) 1,000 mcg PO DAILY [facility] Stop: 06/22/24 08:59 Last Admin: 05/24/24 08:04 Dose: 1,000 mcg Docusate Sodium (Docusate Sodium 100 Mg Cap) 100 mg PO BID [facility] Stop: 06/21/24 20:59 Last Admin: 05/24/24 08:04 Dose: 100 mg Piperacillin Sod/Tazobactam (Sod 4.5 gm/ Dextrose) 100 mls @ 25 mls/hr IV Q8H [facility]ACIE; Protocol Stop: 06/01/24 20:59 Last Admin: 05/24/24 05:18 Dose: 25 mls/hr Loratadine (Loratadine 10 Mg Tab) 10 mg PO DAILY PRN PRN Reason: Allergy Symptoms Stop: 06/21/24 20:14 Nebivolol 5mg ~ Non- Formulary Patient's Own Med 1 each PO QPM [facility] Stop: 06/21/24 20:59 Last Admin: 05/23/24 20:35 Dose: 1 tabs Ondansetron HCl (Ondansetron Inj 2 Mg/Ml 2 Ml Vial) 4 mg IV Q6H PRN PRN Reason: Nausea Stop: 06/21/24 20:14 Polyethylene Glycol (Polyethylene (Miralax) 17 Gm Pack) 17 gm PO DAILY [facility] Stop: 06/22/24 08:59 Last Admin: 05/24/24 08:04 Dose: 17 gm Saccharomyces Boulardii (Saccharomyces Boulardii 250 Mg Cap) 250 mg PO DAILY [facility] Stop: 06/22/24 08:59 Last Admin: 05/24/24 08:05 Dose: 250 mg Vitamin D (Cholecalciferol 25 Mcg (1000 Units) Tab) 25 mcg PO DAILY [facility] Stop: 06/22/24 08:59 Last Admin: 05/24/24 08:05 Dose: 25 mcg
--- NOTE | 2024-05-24 09:52 | Urology Progress Note ---
Date of Service May 24, 2024 Assessment & Plan (1) Hematuria: (2) Complicated UTI (urinary tract infection): (3) Bacteremia: (4) Benign localized prostatic hyperplasia with lower urinary tract symptoms (LUTS): Plan: 74 yo/M with BPH and urinary retention admitted for complicated UTI/positive blood cultures Patient afebrile, hemodynamically stable Labs todaycreatinine 0.93, no leukocytosis, hemoglobin 14.0 Urine culture 05/19/2024 with Kluyvera cryocrescens Blood cultures 05/19/2024 with coag negative staph and bacillus species Repeat urine and blood cultures (05/22) with no growth to date Continue with antibiotics per culture Hematuria has cleared Bilateral hydronephrosis has improved with Lopez catheter in place Recommend maintain Lopez catheter for management of urinary retentionplan to maintain until urology follow-up Okay to gently hand irrigate catheter as needed for catheter obstruction Keep outpatient urology follow-up as scheduled to discuss ongoing management will sign off, please contact our service with any additional questions or concerns Admission and Anticipated Discharge Date Admission Date: May 23, 2024 Subjective Patient feeling better Lopez intact, urine has cleared Denies pain No nausea, vomiting, fever or chills Review of Systems Constitutional: as per Subjective / HPI Genitourinary: + as per Subjective / HPI Physical Exam Constitutional: well developed and well nourished; no acute distress Respiratory: normal respiratory effort; no respiratory distress and no labored breathing Gastrointestinal (Abdomen): Inspection/Auscultation: abdomen normal to inspection Musculoskeletal: Head/Neck/Chest: normocephalic Neurologic: moves all extremities and awake Psychiatric: Orientation: alert and oriented x 3 Genitourinary: Lopez with clear urine Results & Data Vital Signs (Past 12 Hours) Vital Signs Temp Pulse Resp BP Pulse Ox O2 Del Method 05/24/24 07:01 36.4 C L 58 L 14 126/78 97 Room Air PG Care Time/CCT Total # of Minutes Spent Total Time Spent with Patient: Total time spent is greater than 50% in coordination of care (as documented) at patient's floor/unit and/or counseling patient: Coding Level of Care Code 27332 SUB INP/OBS CARE 25MIN Diagnoses Hematuria R31.9 Complicated UTI (urinary tract infection) N39.0 Bacteremia R78.81 Benign localized prostatic hyperplasia with lower urinary tract symptoms (LUTS) N40.1
--- NOTE | 2024-05-24 14:04 | Infectious Disease Consult ---
Date of Service May 24, 2024 Telehealth Information I performed this visit using a real-time telehealth connection between my location and the patients location ([facility]). After connecting through interactive tele-video, patient was identified by name and date of and/or wristband check.Patient (or authorized healthcare district sales representative) was informed that this was a telemedicine visit and it was being conducted confidentially over secure lines. My office door was closed and no one else was present in the room with me.Patient (or authorized healthcare district sales representative) provided consent to proceed with the visit, expressed an understanding of privacy and security of the telemedicine visit, and gave permission to have a hospital district sales representative in the room in order to assist with the visit and to conduct portions of the visit, as needed. I informed the patient (or authorized healthcare district sales representative) that I reviewed their record and presented the opportunity for them to ask any questions regarding the visit today. The patient agreed to participate. Assessment & Plan (1) Positive blood culture: (2) Catheter-associated urinary tract infection: (3) Bladder outlet obstruction: (4) Lopez catheter in place: Plan Both, the bacillus and coagulase-negative staph growing in blood culture are likely contaminants and do not warrant treatment. Please discontinue all current antibiotics and start oral Bactrim DS twice daily to treat CAUTI due to Kluyerva for a total duration of 10 days (including inpatient appropriate antibiotic days). Thank you for consulting Infectious Disease. We will sign off for now. History of Present Illness History of Present Illness Mr. Quesada is a 74-year-old man with medical history of HTN, and BPH with bladder outlet obstruction who was admitted to [facility] on 05/22 after being called for positive blood culture. He was being followed up by Urology as outpatient because of his bladder outlet obstruction and was being educated for intermittent catheterization at [facility]. Because he has been having issues with intermittent catheterization with failure to empty his bladder, he visited the Urology Clinic on 05/18 and the Urology nurse helped place another Lopez catheter. On 05/19, he presents to the emergency department because of fever and was suspected to have urinary tract infection. Two sets of blood culture were sent along with the urine culture and he was sent home on cefdinir. Urine culture from that ED grew Kluyerva and 1 set of blood culture grew bacillus in the anaerobic bottle and coagulase-negative staph in the aerobic bottle. On presentation, he was afebrile and a little hypertensive; otherwise, the rest of the vitals were within normal limits. Id team was consulted for further recommendations and to help guide antibiotic treatment. Allergies Allergy/AdvReac Type Severity Reaction Status Date / Time No Known Allergies Allergy Verified 05/22/24 16:10 Home Medications Medication Instructions Recorded Confirmed Type allopurinol 300 mg tablet 300 mg PO QPM 07/04/19 05/22/24 History acetaminophen 650 mg 650 mg PO Q8H PRN Pain 07/08/19 05/22/24 History tablet,extended release nebivolol 5 mg tablet (Bystolic) 5 mg PO QPM 05/30/20 05/22/24 History Saccharomyces boulardii 250 mg 250 mg PO DAILY 02/10/22 05/22/24 History capsule (Florastor) loratadine 10 mg tablet (Claritin) 10 mg PO DAILY PRN Allergy Symptoms 01/06/23 05/22/24 History ascorbic acid (vitamin C) 500 mg 500 mg PO Q OTHER DAY 05/07/24 05/22/24 History tablet (Vitamin C) cholecalciferol (vitamin D3) 25 25 mcg PO DAILY 05/07/24 05/22/24 History mcg (1,000 unit) tablet (Vitamin D3) cyanocobalamin (vitamin B-12) 1,000 mcg PO DAILY 05/07/24 05/22/24 History 1,000 mcg tablet (Vitamin B-12) polyethylene glycol 3350 17 gram 17 g PO DAILY Constipation 05/07/24 05/22/24 History oral powder packet (Miralax) amoxicillin 875 mg-potassium 1 tab PO BID 05/22/24 05/22/24 History clavulanate 125 mg tablet artificial 1 drp ophthalmic (eye) 5XD PRN Dry 05/22/24 05/22/24 History tears(cmxjdjh-gghkfffq-afjmlav) Eye(S) 0.1 %-0.3 %-0.2 % eye drops (GenTeal Tears Moderate) docusate sodium 100 mg capsule 100 mg PO BID 05/22/24 05/22/24 History (Colace) Patient History Medical History PVC (premature ventricular contraction) Idiopathic polyneuropathy Hypertension Arthritis Elevated PSA Stomach ulcer Lentigo maligna Surgical History History of eye surgery History of total hip replacement History of appendectomy Family History Uncle Prostate cancer paternal uncle Grandfather (Paternal) Prostate cancer Father Heart disease Hypertension Social History Smoking Status: Heavy tobacco smoker Tobacco Type: Cigarettes and Smokeless Tobacco (Dip or Chew) Smoking End Date: 2001; Do You Dip or Chew Tobacco: No; Hx Alcohol Use: Yes Alcohol type: wine Hx Substance Use: No Preferred Language: Kiswahili Communication Ability: Effective Visual Impairment: No Limitations Hearing Ability: Normal 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 Beliefs That Will Affect Care: None marital status: Current Living Situation: Spouse current occupational status: retired Other Information That Helps Us Care for You: No Feels Safe at Home: Yes Safety Concerns: Feels Safe At This Time Diet: regular Assistive Devices: None Review of Systems Constitutional:no fatigue, no fever or chills Cardiovascular:no chest pain, or palpitations Respiratory:no shortness of breath, no cough Gastrointestinal:no abdominal pain or diarrhea :Lopez in place Results & Data Vital Signs (Past 12 Hours) Vital Signs Temp Pulse Resp BP Pulse Ox O2 Del Method 05/24/24 07:01 36.4 C L 58 L 14 126/78 97 Room Air Laboratory Results Microbiology: 05/19: Urine culture growing Kluyvera 05/19: 1 of 2 sets of blood culture growing coagulase-negative staph in the aerobic bottle and bacillus in the anaerobic bottle 05/22: 2 sets of blood culture negative to date 05/22: Urine culture negative Diagnostic Findings Imaging: CT abdomen pelvis performed on 05/19: 1. No hydronephrosis, nephrolithiasis, or obstructive uropathy. 2. Lopez catheter terminates in the urinary bladder. Wall thickening of the urinary bladder, correlate for UTI. 3. Diverticulosis, without acute diverticulitis. No small bowel obstruction. No free intraperitoneal air.
--- NOTE | 2024-05-24 14:39 | Discharge Summary ---
Date of Service May 24, 2024 Admission HPI Per Admitting Provider This is a 74yo M with a PMH of BPH, urinary retention following with [facility] urology called back to ED today for positive preliminary blood cultures. Has been in ED multiple times this month for urinary issues. Was seen in ED on 05/07 with meyer catheter placement. Had a trial to void at urology office and was sent home with instruction to straight cath, which he was able to do twice. The third time, he was met with resistance and started to bleed. Returned to ED on 05/19 for urinary symptoms and attempted a straight cath after per urology recommendation. Was discharged home on cefdinir course and instruction to follow up with urology. With preliminary positive blood cultures, ED pharmacy called patient yesterday and instructed him to switch to Augmentin. Has taken 3 doses. Was then called again today by pharmacy and directed to come back to ED for IV abx and awaiting finalization of blood cultures. Endorses fever since then despite antibiotics. Tmax 100 F. Preliminary blood cultures from 05/19 grew out gram negative bacilli. Still feels weak and rundown but better than 2 days ago. No fever today. Nausea has resolved. No headache, CP, SOB, N/V, abd pain, dysuria, diarrhea or constipation. Patient mentions pain in his lower back when he feels a "blockage" in catheter and improves when meyer is irrigated. Admission Exam Per Admitting Provider General: Lying comfortably in bed, not in distress, on room air HEENT: EOMI, PUMA, MMM Chest: Clear breath sounds bilaterally, no wheezes or crackles CVS: Regular rate and rhythm, normal heart sounds, no murmur Abdomen: Soft, non tender, not distended, normal bowel sounds Neuro: Awake, alert, oriented, conversing well, non focal Extremities: No cyanosis, clubbing or edema Genitourinary: Meyer with hematuria Principal Diagnosis Catheter associated UTI Discharge Exam General: Lying comfortably in bed, not in distress, on room air HEENT: EOMI, PUMA, MMM Chest: Clear breath sounds bilaterally, no wheezes or crackles CVS: Regular rate and rhythm, normal heart sounds, no murmur Abdomen: Soft, non tender, not distended, normal bowel sounds Neuro: Awake, alert, oriented, conversing well, non focal Extremities: No LE edema, moves extremities Genitourinary: Meyer with clear yellow urine Discharge Data Allergies Allergy/AdvReac Type Severity Reaction Status Date / Time No Known Allergies Allergy Verified 05/22/24 16:10 Consultations 05/22/24 16:08 ED Decision to Admit Stat 05/22/24 17:46 Consult Urology Routine 05/23/24 09:15 Consult Infectious Diseases Routine Hospital Course (1) Bacteremia: (2) Complicated UTI (urinary tract infection): (3) Benign localized prostatic hyperplasia with lower urinary tract symptoms (LUTS): (4) Hypertension: Plan Pt is a 74yo M with a PMHx significant for BPH, urinary retention following with [facility] urology who was called back to the ED for positive preliminary blood cultures. Poss. Bacteremia Complicated UTI - CAUTI Chronic Indwelling meyer catheter BPH Presented with fever to the ED on 05/19, treated with IV rocephin for a complicated UTI and discharged home with po cefdinir Was started on cefdinir on 05/19 but urine culture grew Klyuvera intermediate status to third generation cephalosporin but sensitive to Augmentin (switched on 05/21) ED called pt to return to ED after 05/19 blood cx showed gram negative bacilli in 1/4 bottles Blood cultures also showed CONS in 1/4 bottles which is likely a contamination Serology positive for MSSA and staph epidermis UA repeated this admission , Ucultx (05/22) - negative Blood Cx x 2 sets repeated this admission as well on 05/22 - NGTD Continued IV Zosyn while hospitalized ID consulted, appreciate further recs - recommend treatment for CAUTI caused by Klyvera with Bactrim DS bid (total abx course to be 10 days). Blood cultx likely contaminant. Hematuria hematuria since self cathing 1 week ago, meyer now in place Hgb stable but noted drop overnight on 05/22 from hgb 15.5 to 13.7 Hematuria now resolved Current Hgb 14 [facility] urology consulted - Bilateral hydronephrosis has improved with Meyer catheter in place Recommend maintain Meyer catheter for management of urinary retentionplan to maintain until urology follow-up Okay to gently hand irrigate catheter as needed for catheter obstruction Keep outpatient urology follow-up as scheduled to discuss ongoing management Hypertension Continue Nebivolol (brought from home, sent to pharmacy for labeling) Continue to monitor Continue other home meds as ordered Total Time Total Time Spent Total Time Spent (In Minutes): 40 Discharge Plan Discharge Items Patient Disposition: Home - Self-Care Reason For Visit: PRELIM POSITIVE BLOOD CX Discharge Diagnosis: Catheter associated UTI Activity: Per Instructions section Non-emergency contact: Primary Care Provider and Urologist Call non-emergency contact if: you have any medication questions and your symptoms worsen Follow-up/Referrals: Yari Garcia CRNP [Nurse Practitioner] - 05/31/24 11:30 am Drake Alonso M.D. [Primary Care Provider] - 06/02/24 11:00 am Diet: Heart Healthy Addtl Attending Provider Instructions: Follow up with your primary care doctor and urologist. As discussed with urology, keep Meyer catheter until seen in their clinic. Take antibiotic - Bactrim - as prescribed, for catheter associated UTI. Pending Studies at Discharge: Yes Studies:: final results of blood cultx Stand-Alone Forms: [employer], Smoking Cessation Medications and DC Order Prescriptions: New sulfamethoxazole-trimethoprim [Bactrim DS] 800-160 mg Tablet 1 tab PO Q12 8 Days Qty: 16 0RF Continued acetaminophen 650 mg tablet extended release 650 mg PO Q8H PRN (Reason: Pain) loratadine [Claritin] 10 mg tablet 10 mg PO DAILY PRN (Reason: Allergy Symptoms) Bystolic 5 mg tablet 5 mg PO QPM Saccharomyces boulardii [Florastor] 250 mg capsule 250 mg PO DAILY allopurinol 300 mg tablet 300 mg PO QPM docusate sodium [Colace] 100 mg Capsule 100 mg PO BID artificial tear(tiria-ucp-xas) [GenTeal Tears Moderate] 0.1-0.3-0.2 % Drops 1 drp OPHTHALMIC (EYE) 5XD PRN (Reason: Dry Eye(S)) polyethylene glycol 3350 [Miralax] 17 gram Powder In Packet 17 g PO DAILY cyanocobalamin (vitamin B-12) [Vitamin B-12] 1,000 mcg Tablet 1,000 mcg PO DAILY ascorbic acid (vitamin C) [Vitamin C] 500 mg Tablet 500 mg PO Q OTHER DAY cholecalciferol (vitamin D3) [Vitamin D3] 25 mcg (1,000 unit) Tablet 25 mcg PO DAILY Discontinued amoxicillin-pot clavulanate 875-125 mg tablet 1 tab PO BID Rx Instructions: STARTED 05/21/24 FOR 7 DAYS Discharge Orders: Discharge Order (Routine); Ordered 05/24/24 Ordered By: Ryan Mas Admission Data Admit Date/Time: 05/23/24 11:38 Attending Provider: Ryan Mas Admit Provider: Shayan Turcios Primary Care Provider: Drake Alonso Other Providers: Karson Palmer; Shayan Turcios; Conrad Stearns; Oskar Peck; Juju Faulkner; John Salinas I.; Jean Barker II; Lisa Bajwa; Sen Ramirez; Ramirez Crenshaw; Piyush Patel
[2024-05-24] MEDS: SULFAMETHOXAZOLE/TRIMETHOPRIM DS 800/160MG TAB PO SCH (15:03)
== END 2024-05-24 15:41 | disposition home or self-care (01) | DRG 699 ==
LOC: 3E 14:42 → ED 14:42 → SUATTDRO 16:47 → 3E 19:58 → SUATTDRO 05-23 11:38

== ENCOUNTER 2025-10-11 07:48 | Inpatient (IN) ==
--- NOTE | 2025-09-14 11:01 | PAT Medication Instructions ---
Medication Instructions Date of Service September 14, 2025 Home Medications allopurinol 300 mg tablet 300 mg PO QPM acetaminophen 650 mg tablet,extended release 650 mg PO Q8H PRN Pain Saccharomyces boulardii 250 mg capsule (Florastor) 250 mg PO QAM loratadine 10 mg tablet (Claritin) 10 mg PO DAILY PRN Allergy Symptoms ascorbic acid (vitamin C) 500 mg tablet (Vitamin C) 500 mg PO Q OTHER DAY cholecalciferol (vitamin D3) 25 mcg (1,000 unit) tablet (Vitamin D3) 25 mcg PO cyanocobalamin (vitamin B-12) 1,000 mcg tablet (Vitamin B-12) 1,000 mcg PO DAILY polyethylene glycol 3350 17 gram oral powder packet (Miralax) 17 g PO UD Constipation artificial tears(nnhmqbs-lnktzoqc-gsxuvvn) 0.1 %-0.3 %-0.2 % eye drops (GenTeal Tears Moderate) 1 drp ophthalmic (eye) 5XD PRN Dry Eye(S) docusate sodium 100 mg capsule (Colace) 100 mg PO QAM metoprolol succinate 50 mg tablet,extended release 24 hr 50 mg PO HS DO NOT take the morning of surgery Saccharomyces boulardii 250 mg capsule (Florastor) 250 mg PO QAM loratadine 10 mg tablet (Claritin) 10 mg PO DAILY PRN Allergy Symptoms ascorbic acid (vitamin C) 500 mg tablet (Vitamin C) 500 mg PO Q OTHER DAY cholecalciferol (vitamin D3) 25 mcg (1,000 unit) tablet (Vitamin D3) 25 mcg PO cyanocobalamin (vitamin B-12) 1,000 mcg tablet (Vitamin B-12) 1,000 mcg PO DAILY polyethylene glycol 3350 17 gram oral powder packet (Miralax) 17 g PO UD Constipation docusate sodium 100 mg capsule (Colace) 100 mg PO QAM Take morning of surgery With a small sip of water, OTHERWISE NOTHING TO EAT OR DRINK AFTER MIDNIGHT: acetaminophen 650 mg tablet,extended release 650 mg PO Q8H PRN Pain (if needed) artificial tears(oyeqrjz-sipsshfu-ubjwael) 0.1 %-0.3 %-0.2 % eye drops (GenTeal Tears Moderate) 1 drp ophthalmic (eye) 5XD PRN Dry Eye(S) (if needed) Take evening before surgery allopurinol 300 mg tablet 300 mg PO QPM acetaminophen 650 mg tablet,extended release 650 mg PO Q8H PRN Pain (if needed) loratadine 10 mg tablet (Claritin) 10 mg PO DAILY PRN Allergy Symptoms (if needed) artificial tears(whpvvtm-ywoarrds-ympaqkj) 0.1 %-0.3 %-0.2 % eye drops (GenTeal Tears Moderate) 1 drp ophthalmic (eye) 5XD PRN Dry Eye(S) (if needed) metoprolol succinate 50 mg tablet,extended release 24 hr 50 mg PO HS Other Notes If you have any questions please call us at [phone] or [phone] or [phone] or [phone]
--- NOTE | 2025-09-22 13:11 | Anesthesiology Consultation ---
Date of Service September 22, 2025 Assessment & Plan (1) Encounter for pre-operative examination: - coags hemolyzed-patient is aware and is going to return to a [place] lab this week to have coags repeated. Orders placed. - chronic dyspnea since COVID infection several years ago. Will request most recent PCP office note, clearance ordered by surgeon reportedly completely 1 week ago-Dr. Drake Baird. If cleared by PCP, acceptable to proceed. - cardiology office visit 03/28/25 [place]: "...stable from a cardiovascular standpoint. He demonstrates excellent control of his blood pressure both at home and in the office today. Fortunately, his symptomatic PVCs have resolved with the change in medications...Follow up 1 year..." Chart Review Chart Review: Patient seen in Pre Admission Testing Teaching & Discussion Pre-Anesthesia Teaching/Discussion Notes: Instructed NPO after midnight before surgery, except medications with 15 cc of water. Medication instructions provided according to the PAT guidelines. History Surgery Operation Date: 10/11/25 09:35 Proposed Procedures p L5-S1 Decompression and Fusion - Hugh Morataya DO Height/Weight Height: 6 ft 1 in Weight: 98.7 kg Allergies Allergy/AdvReac Type Severity Reaction Status Date / Time No Known Allergies Allergy Verified 09/14/25 10:17 Medications Home Medications Medication Instructions Recorded Confirmed Last Taken allopurinol 300 mg tablet 300 mg PO QPM 07/04/19 09/14/25 06/12/24 20:00 acetaminophen 650 mg 650 mg PO Q8H PRN Pain 07/08/19 09/14/25 06/12/24 tablet,extended release Saccharomyces boulardii 250 mg 250 mg PO QAM 02/10/22 09/14/25 06/13/24 08:00 capsule (Florastor) loratadine 10 mg tablet (Claritin) 10 mg PO DAILY PRN Allergy Symptoms 01/06/23 09/14/25 06/12/24 ascorbic acid (vitamin C) 500 mg 500 mg PO Q OTHER DAY 05/07/24 09/14/25 06/12/24 tablet (Vitamin C) cholecalciferol (vitamin D3) 25 25 mcg PO DAILY 05/07/24 09/14/25 06/12/24 mcg (1,000 unit) tablet (Vitamin D3) cyanocobalamin (vitamin B-12) 1,000 mcg PO DAILY 05/07/24 09/14/25 06/12/24 1,000 mcg tablet (Vitamin B-12) polyethylene glycol 3350 17 gram 17 g PO UD Constipation 05/07/24 09/14/25 06/13/24 09:00 oral powder packet (Miralax) artificial 1 drp ophthalmic (eye) 5XD PRN Dry 05/22/24 09/14/25 06/14/24 07:30 tears(pyepomi-dgrmkiif-avzbeje) Eye(S) 0.1 %-0.3 %-0.2 % eye drops (GenTeal Tears Moderate) docusate sodium 100 mg capsule 100 mg PO QAM 05/22/24 09/14/25 06/12/24 (Colace) metoprolol succinate 50 mg 50 mg PO HS 06/14/24 09/14/25 06/13/24 20:00 tablet,extended release 24 hr Past Medical History Medical History (Updated 09/22/25 @ 15:03 by Noni Toussaint PA-C) Arthritis BPH (benign prostatic hyperplasia) Elevated PSA Essential tremor GERD (gastroesophageal reflux disease) controlled, stable per pt Gout Stable, no recent flares Hiatal hernia History of COVID-19 (2021) chronic dyspnea on exertion since illness-denies change or worsening Hypertension controlled, stable per pt Idiopathic polyneuropathy B/L lower extremities Lentigo maligna Hx, x2 (excision) Lumbosacral radiculopathy Macular degeneration + ocular vein occlusion Eyelea injections every 3 months PVC (premature ventricular contraction) Controlled w/nebivolol Follows w/Dr. Thomas Sleep apnea No device Stomach ulcer Remote hx 35+ years ago Patient denies h/o stroke, seizures, heart attack, heart failure, DM, blood clots/DVTs or blood transfusions. Exercise / Class Metabolic Activity III < 4 Walking/Shop/Light housework (shortness of breath with usual activities ongoing since having COVID 2 years ago-denies change or worsening; denies chest discomfort) Past Family History Family History Uncle Prostate cancer paternal uncle Grandfather (Paternal) Prostate cancer Father Heart disease Hypertension Past Surgical History Surgical History (Updated 09/22/25 @ 13:08 by Noni Toussaint PA-C) History of appendectomy History of eye surgery lens implants bilat History of total hip replacement Right History of transurethral resection of prostate LMA, [facility] (06/14/24) Hx of bilateral cataract extraction Hx of rotator cuff surgery left: x3 and bicep tendon repair Past Anesthesia History No Hx of Anesthesia Complications and No Family Hx of Anesthesia Complications History of PONV No Hx of PONV and No Hx of Motion Sickness Social History Smoking Status: Former smoker (quit 40 years ago) Do You Dip or Chew Tobacco: No (quit 2 weeks ago) Smoking End Date: quit 20 yrs ago Hx Alcohol Use: Yes Alcohol type: wine alcohol intake frequency: a few times a month Hx Substance Use: No substance use type: does not use Review of Systems Patient denies chest pain, fever, chills, cough, wheezing, or palpitations. Physical Exam Vital Signs Vitals BP 153/89 P 75 TEMP 97.9 SP02 96% on RA RESP 18 Physical Patient resting comfortably in chair in no acute distress, alert and oriented, responding appropriately throughout visit Full cervical extension range of motion without pain TMD 3 finger breadths Mallampati Score 3 Dentition: several chipped teeth, several crowns; denies loose teeth, caps, implants or bridges Lungs: normal respiratory effort. Good air movement, clear throughout to au scultation, no adventitious breath sounds Cardiac: regular rate and rhythm, no murmurs noted Carotid arteries: negative bruit bilat Lab Results Anesthesia Preop Results Results Anesthesia Widget: WBC 7.27 K/ul (4.8-10.8) 08/30/25 Hgb 16.5 g/dl (14.0-18.0) 08/30/25 Hct 48.6 % (42.0-52.0) 08/30/25 Plt 153 K/uL (130-400) 08/30/25 Na 139 mmol/L (136-145) 08/30/25 K 4.2 mmol/L (3.5-5.1) 08/30/25 Cl 106 mmol/L (98-107) 08/30/25 CO2 28 mmol/L (21-32) 08/30/25 BUN 14 mg/dl (6-23) 08/30/25 Creat 0.90 mg/dl (0.6-1.4) 08/30/25 Glucose Level 94 mg/dl (70-99(Fasting)) 08/30/25 TSH 1.538 uIu/ml (0.300-4.500) 08/30/25 Free T4 1.05 ng/dl (0.61-1.60) 08/30/25 Urine Color Yellow 09/22/25 Urine Appearance Clear (Clear) 09/22/25 Urine pH 6.0 (4.5-7.5) 09/22/25 Urine Specific [place] 1.016 (1.000-1.030) 09/22/25 Urine Protein Negative (Negative) 09/22/25 Urine Glucose (UA) Negative (Negative) 09/22/25 Urine Ketones Negative (Negative) 09/22/25 Urine Blood Negative (Negative) 09/22/25 Urine Nitrite Negative (Negative) 09/22/25 Urine Bilirubin Negative (Negative) 09/22/25 Urine Urobilinogen Negative (Negative) 09/22/25 Urine Leukocyte Esterase Trace (Negative) H 09/22/25 Urine WBC (Auto) 0-5 /hpf (0-5) 09/22/25 Urine RBC (Auto) 0-2 /hpf (0-2) 09/22/25 Urine Hyaline Casts (Auto) 0-2 /lpf (0-2) 09/22/25 Urine Epithelial Cells (Auto) 0-2 /hpf (0-2) 09/22/25 Urine Bacteria (Auto) None Seen (None Seen) 09/22/25 Blood Type O Positive 09/22/25 Antibody Screen NEGATIVE 09/22/25 Testing Electrocardiogram Date: 09/22/25 NSR, rate 69 bpm Chest X-Ray Date: 09/05/25 No pneumonia seen Echocardiogram Date: 09/15/24 EF 50-55% No regional wall motion abnormalities Mild cLVH Mildly dilated RV Mild mitral regurgitation Hepatic cystlike structure measuring approximately 4.5 x 4.4 cm Type I diastolic dysfunction Other Testing Carotid doppler 09/09/22 1. There is no sonographic evidence of hemodynamically significant stenosis in the right or left carotid arterial system. 2. Antegrade flow is shown in the vertebral arteries.
[~2025-10-11 07:48] MED LIST: DEXAMETHASONE SOD INJ 4 MG/ML VIAL ONE; GLYCOPYRROLATE 0.2 MG/ML VIAL ONE; LIDOCAINE 2% 2 ML VIAL/AMP(20MG/ML) INFIL ONE; MIDAZOLAM HCL 1 MG/ML 2ML VIAL ONE; ONDANSETRON INJ 2 MG/ML 2 ML VIAL ONE; PROPOFOL IV EMULSION 10 MG/ML 20 ML VIAL IV ONE; ROCURONIUM BROMIDE 10 MG/ML 5 ML VIAL IV ONE; SUGAMMADEX SODIUM 200 MG/2 ML VIAL IV ONE
[2025-10-11] MEDS: CeleBREX 200 MG CAP PO SCH (08:21)
[2025-10-11] MEDS: ACETAMINOPHEN 500 MG TAB PO SCH (08:21)
[2025-10-11] MEDS: GABAPENTIN 300 MG CAP PO SCH (08:21)
[2025-10-11] MEDS: LR 60ML/HR IV SCH (08:22)
[2025-10-11] MEDS: LR 15ML/HR IV SCH (08:22)
[2025-10-11] MEDS ORDERED: ATROPINE SULFATE 0.1 MG/ML 10ML SYR IV PRN (09:10)
[2025-10-11] MEDS ORDERED: ONDANSETRON INJ 2 MG/ML 2 ML VIAL IV PRN ×2 (09:10→12:33)
--- NOTE | 2025-10-11 09:19 | History & Physical Bridge Note ---
Date of Service October 11, 2025 History & Physical Bridge Note I have examined the patient, reviewed the History & Physical and in the interval since the performance of the History & Physical I have noted the following changes of clinical significance: no changes noted
--- NOTE | 2025-10-11 09:20 | History & Physical Report ---
Date of Service October 11, 2025 Assessment & Plan (1) Spondylolisthesis, lumbar region: Plan: L5-S1 decompression and fusion History of Present Illness Chief Complaint: Back and leg pain Primary Care Provider: Drake Alonso M.D. This is a 75-year-old male that presents with chronic persistent back and leg pain after failing course of nonoperative care is here for surgical invention. Allergies Allergy/AdvReac Type Severity Reaction Status Date / Time No Known Allergies Allergy Verified 10/11/25 08:03 Home Medications Medication Instructions Recorded Confirmed Type allopurinol 300 mg tablet 300 mg PO QPM 07/04/19 10/11/25 History acetaminophen 650 mg 650 mg PO Q8H PRN Pain 07/08/19 10/11/25 History tablet,extended release Saccharomyces boulardii 250 mg 250 mg PO QAM 02/10/22 10/11/25 History capsule (Florastor) loratadine 10 mg tablet (Claritin) 10 mg PO DAILY PRN Allergy Symptoms 01/06/23 10/11/25 History polyethylene glycol 3350 17 gram 17 g PO UD Constipation 05/07/24 10/11/25 History oral powder packet (Miralax) artificial 1 drp ophthalmic (eye) 5XD PRN Dry 05/22/24 10/11/25 History tears(phizjez-sxwxmata-rynbwtd) Eye(S) 0.1 %-0.3 %-0.2 % eye drops (GenTeal Tears Moderate) docusate sodium 100 mg capsule 100 mg PO QAM 05/22/24 10/11/25 History (Colace) cholecalciferol (vitamin D3) 25 50 mcg PO DAILY 10/06/25 10/11/25 History mcg (1,000 unit) tablet (Vitamin D3) nebivolol 5 mg tablet 5 mg PO DAILY 10/06/25 10/11/25 History Past Med/Surg History Problem List (Updated 10/11/25 @ 09:20 by Hugh Morataya DO) Spondylolisthesis, lumbar region Lumbosacral radiculopathy Lopez catheter in place Benign localized prostatic hyperplasia with lower urinary tract symptoms (LUTS) Medical History (Updated 10/11/25 @ 09:20 by Hugh Morataya DO) Lumbosacral radiculopathy BPH (benign prostatic hyperplasia) Hiatal hernia GERD (gastroesophageal reflux disease) controlled, stable per pt Gout Stable, no recent flares Essential tremor History of COVID-19 (2021) chronic dyspnea on exertion since illness-denies change or worsening Sleep apnea No device Macular degeneration + ocular vein occlusion Eyelea injections every 3 months PVC (premature ventricular contraction) Controlled w/nebivolol Follows w/Dr. Thomas Idiopathic polyneuropathy B/L lower extremities Hypertension controlled, stable per pt Arthritis Elevated PSA Stomach ulcer Remote hx 35+ years ago Lentigo maligna Hx, x2 (excision) Surgical History History of transurethral resection of prostate A, [facility] (06/14/24) Hx of bilateral cataract extraction Hx of rotator cuff surgery left: x3 and bicep tendon repair History of eye surgery lens implants bilat History of total hip replacement Right History of appendectomy Family History Uncle Prostate cancer paternal uncle Grandfather (Paternal) Prostate cancer Father Heart disease Hypertension Social History Smoking Status: Former smoker (quit 40 years ago) Tobacco Type: Cigarettes and Smokeless Tobacco (Dip or Chew) Smoking End Date: quit 20 yrs ago; Second Hand Exposure: No; Do You Dip or Chew Tobacco: No (quit 2 weeks ago); Tobacco Cessation Education Requested by Patient: No Hx Alcohol Use: Yes Alcohol type: wine Hx Substance Use: No Preferred Language: Peruvian Communication Ability: Effective Visual Impairment: No Limitations Hearing Ability: Normal Jr. Systems Administrator Required: No Beliefs That Will Affect Care: None marital status: Current Living Situation: Spouse current occupational status: retired Other Information That Helps Us Care for You: No Feels Safe at Home: Yes Safety Concerns: Feels Safe At This Time Diet: regular Assistive Devices: Glasses Physical Exam Physical Exam: Patient is alert and oriented Heart regular rhythm Lungs clear Results & Data Results & Data Vital Signs (Past 12 Hours) Vital Signs Temp Pulse Resp BP Pulse Ox O2 Del Method 10/11/25 08:05 36.6 C 66 20 155/101 H 98 Room Air
[2025-10-11] MEDS: BUPIVACAINE/EPINEPHRINE 0.25% 1:200,000 30 ML VIAL ONE (10:32)
[2025-10-11] MEDS: ceFAZolin 330 MG/ML 1 GM VIAL ONE ×2 (11:07→11:08)
[2025-10-11] MEDS: FLOSEAL HEMOSTATIC MATRIX 10ML TOP ONE (11:07)
--- NOTE | 2025-10-11 11:17 | Operative Report ---
Post Operative Report Pre & Post Diagnosis Operation Date: 10/11/25 09:15 Pre-Op Diagnosis: #1 lumbosacral Spondylosis with Radiculopathy #2 lumbar spondylolisthesis Post-Op Diagnosis: Same I identified the patient and participated in the time-out.: Yes Procedure Operation Date: 10/11/25 09:15 Actual Procedures #1 lumbar decompression bilateral middle facetectomies and foraminotomies L5-S1. #2 posterior spinal fusion L5-S1. #3 placement posterior instrumentation L5-S1 using Lopez. #4 interbody fusion L5-S1. #5 placement of Spira 12 x 26 mm x 2 at L5-S1. #6 placement of Proteus combined with Koros bone graft in the posterior lateral gutters and os design in the right space. #7 application of versa wrap of the exposed dura. Surgeon Hugh Morataya, Financial Management Consultant Lia Burton Estimated Blood Loss 250 Findings Consistent with Post-Op Diagnosis Specimens None Indications This is a 75-year-old male presents manage diagnosis after failing course of nonoperative care is here for surgical invention. Description of Procedure Patient is met with identified informed consent obtained. Patient was then taken to the operative suite underwent a patient placed in a prone position on the Wes table on top of the Brock frame. All bony promises well-padded eyes inspected to ensure no external pressure placed upon them. This point the lumbar spine was prepped and draped in normal sterile fashion. Sharp dissection with the assistance of Bovie cautery performed down to and exposing the lamina and transverse processes of L5 and sacral ala bilaterally. Obvious bilateral pars defect and spina bifida noted. A complete laminectomy of L5 was then performed including bilateral medial facetectomies and foraminotomies addressing all neural compression. Aravind screws were then placed in L5 and S1 levels bilaterally with assistance of fluoroscopy and appropriately sized rods placed. By way of transforaminal approach and right a discectomy of L5-S1 was performed endplates curetted to subcortical bleeding bone and a 12 x 26 mm Spira cage tapped into position. Then proceeded to the left transforaminal region at L5- S1. Again discectomy performed. Endplates guided to subcortical bleeding bone and a second 12 x 26 mm Spira cage tapped into position. Please note all cages were packed with os design bone graft. The rods were then locked in a final position bilaterally. The transverse processes of L5 and the sacral ala burred to subcortical bleeding bone. Koros combined with Proteus bone graft placed in the posterolateral gutters. Versa wrap placed of the exposed dura. 15 round HELEN drain inserted. The incision was then closed with 1 Vicryl in the fascia 2-0 Vicryl subcutaneously and 4-0 Monocryl for final skin closure. Steri-Strips sterile dressing placed. Patient waken taken to PACU in stable condition. Please note Lia Burton was present at the entire procedure and all the patient positioning complex portion of the surgery and final skin closure. I attest to the content of the Intraoperative Record and any orders documented therein. Any exceptions are noted below.
--- NOTE | 2025-10-11 11:37 | Fluoroscopy Report ---
FL lumbar spine 2-3V CLINICAL HISTORY: L5-S1 DECOM/FUSION COMPARISON STUDY: None FLUOROSCOPY TIME: 19 seconds FLUOROSCOPY IMAGES: 2 EXPOSURE DOSE: 18 mGy FINDINGS: Fluoroscopy was provided for L5-S1 fusion. IMPRESSION: Intraoperative fluoroscopy. ACT 112: Negative or not required by law. Electronically signed by: Holden Lance M.D. 10/11/2025 11:35 AM
[2025-10-11] MEDS ORDERED: DO NOT ADMINISTER PNEUMOCOCCAL VACCINE PRN (12:33)
[2025-10-11] MEDS ORDERED: diphenhydrAMINE Capsule 25 MG CAP PO PRN (12:33)
[2025-10-11] MEDS ORDERED: HYDROmorphone INJ 0.5 MG/0.5 ML SYR IV PRN (12:33)
[2025-10-11] MEDS ORDERED: ONDANSETRON 4 MG OD TAB PO PRN (12:33)
[2025-10-11] MEDS ORDERED: SOD PHOSPHATE/SOD BIPHOSPHATE ENEMA 132 ML BTL PR PRN (12:33)
[2025-10-11] MEDS ORDERED: LORazepam 0.5 MG TAB PO PRN (12:33)
[2025-10-11] MEDS ORDERED: NALOXONE HCL 0.4 MG/1 ML VIAL/CARP IV PRN (12:33)
[2025-10-11] MEDS ORDERED: MAGNESIUM HYDROXIDE SUSP 30 ML UDC PO PRN (12:33)
[2025-10-11] MEDS ORDERED: DO NOT ADMINISTER FLU VACCINE PRN (12:33)
[2025-10-11] MEDS ORDERED: LORazepam Inj 0.5 MG in SYRINGE 0.25 ML IV PRN (12:33)
[2025-10-11] MEDS ORDERED: METOCLOPRAMIDE HCL INJ 5 MG/ML 2 ML VIAL IV PRN (12:33)
[2025-10-11] MEDS ORDERED: HYDROmorphone INJ 1 MG/ML SYRINGE IV PRN (12:33)
[2025-10-11] MEDS ORDERED: PROMETHAZINE 12.5 MG/50.5 ML BAG IV PRN (12:33)
[2025-10-11] MEDS ORDERED: LORATADINE 10 MG TAB PO PRN (12:33)
[2025-10-11] MEDS ORDERED: ARTIFICIAL TEARS OP PRN (12:40)
[2025-10-11] MEDS: SODIUM CHLORIDE 0.9% 1,000 ML IV SCH (13:01)
[2025-10-11] MEDS: ACETAMINOPHEN 1,000 MG/100 ML VIAL IV PRN (13:09)
--- NOTE | 2025-10-11 13:29 | Anesthesiology Progress Note ---
Date of Service October 11, 2025 Anesthesia Post Procedure Vital Signs Vital Signs: Temp Pulse Pulse Resp BP Pulse Ox O2 Del Method 10/11/25 13:03 74 16 129/83 97 Room Air 10/11/25 12:33 36.3 C L 75 16 133/84 97 Nasal Cannula 10/11/25 12:10 36.4 C L 74 12 137/88 96 Nasal Cannula 10/11/25 12:00 72 14 135/76 96 Nasal Cannula 10/11/25 11:50 74 16 133/87 95 Oxymask 10/11/25 11:40 87 16 129/82 94 Oxymask 10/11/25 11:29 36 C L 85 18 162/88 H 97 Oxymask 10/11/25 08:05 36.6 C 66 20 155/101 H 98 Room Air O2 Flow Rate 10/11/25 13:03 10/11/25 12:33 2 10/11/25 12:10 2 10/11/25 12:00 2 10/11/25 11:50 3 10/11/25 11:40 3 10/11/25 11:29 6 10/11/25 08:05 Pain Intensity Lower Back: Pain Intensity: 4 Transfer of Care Handoff Completed per policy Notes Mental Status: alert / awake / arousable and participated in evaluation Patient Amnestic to Procedure: Yes Nausea / Vomiting: adequately controlled Pain: adequately controlled Airway Patency, RR, SpO2: stable & adequate BP & HR: stable & adequate Hydration State: stable & adequate Anesthetic Complications: no major complications apparent and Pt Satisfied with anesthetic care
--- NOTE | 2025-10-11 14:08 | Hospitalist Consultation ---
Date of Consultation October 11, 2025 Assessment & Plan (1) Spondylolisthesis, lumbar region: (2) Lumbosacral radiculopathy: Status post L5-S1 decompression and fusion on 10/11/2025 Complains of minimal pain at the lower back with radiation of pain and numbness tingling in the lower extremities Management will be as per orthospine Reviewed preop labs and imaging studies Will check hemoglobin and also kidney function electrolytes tomorrow (3) Hypertension: Blood pressure remains stable at 129/83 Will continue with current medications (4) Idiopathic polyneuropathy: Has been ongoing problem Does not feel that it is getting worse Will continue gabapentin (5) GERD (gastroesophageal reflux disease): No acute symptoms Continue Pepcid and Maalox (6) Essential tremor: Seems to be stable (7) BPH (benign prostatic hyperplasia): History of LUTS Denies any symptoms DVT prophylaxis As per orthospine CODE STATUS Full Supervising Physician Co-Signing Physician Notes History of Present Illness Reason for Consultation: Medical management following back surgery Requesting Physician: Dr. Morataya Attending Physician: Hugh Morataya, DO History of Present Illness He is a 75-year-old male with significant past medical history of hypertension, idiopathic pulm neuropathy, prostatic hyperplasia with lower urinary tract symptoms, macular degeneration, sleep apnea on no device, GERD and history of PVC currently underwent L5-S1 decompression and fusion this morning for ongoing back pain and radiculopathy. He has been complaining of pain at the lower back and ongoing numbness and tingling in the extremities Denies any other significant symptoms. Does not have any chest pain, palpitation or shortness of breath. Denies any abdominal pain nausea vomiting or distention. No headache and no blurred vision. Allergies Allergy/AdvReac Type Severity Reaction Status Date / Time No Known Allergies Allergy Verified 10/11/25 08:03 Home Medications Medication Instructions Recorded Confirmed Type allopurinol 300 mg tablet 300 mg PO QPM 07/04/19 10/11/25 History acetaminophen 650 mg 650 mg PO Q8H PRN Pain 07/08/19 10/11/25 History tablet,extended release Saccharomyces boulardii 250 mg 250 mg PO QAM 02/10/22 10/11/25 History capsule (Florastor) loratadine 10 mg tablet (Claritin) 10 mg PO DAILY PRN Allergy Symptoms 01/06/23 10/11/25 History polyethylene glycol 3350 17 gram 17 g PO UD Constipation 05/07/24 10/11/25 History oral powder packet (Miralax) artificial 1 drp ophthalmic (eye) 5XD PRN Dry 05/22/24 10/11/25 History tears(ixbfsvw-vnklduwj-qpcshuc) Eye(S) 0.1 %-0.3 %-0.2 % eye drops (GenTeal Tears Moderate) docusate sodium 100 mg capsule 100 mg PO QAM 05/22/24 10/11/25 History (Colace) cholecalciferol (vitamin D3) 25 50 mcg PO DAILY 10/06/25 10/11/25 History mcg (1,000 unit) tablet (Vitamin D3) nebivolol 5 mg tablet 5 mg PO DAILY 10/06/25 10/11/25 History oxycodone 5 mg tablet 5 mg PO Q6H PRN pain #30 tabs 10/11/25 Rx tramadol 50 mg tablet 50 mg PO Q6H PRN pain, moderate 10/11/25 Rx #30 tabs Patient History Medical History (Updated 10/11/25 @ 09:20 by Hugh Morataya DO) Lumbosacral radiculopathy BPH (benign prostatic hyperplasia) Hiatal hernia GERD (gastroesophageal reflux disease) controlled, stable per pt Gout Stable, no recent flares Essential tremor History of COVID-19 (2021) chronic dyspnea on exertion since illness-denies change or worsening Sleep apnea No device Macular degeneration + ocular vein occlusion Eyelea injections every 3 months PVC (premature ventricular contraction) Controlled w/nebivolol Follows w/Dr. Thomas Idiopathic polyneuropathy B/L lower extremities Hypertension controlled, stable per pt Arthritis Elevated PSA Stomach ulcer Remote hx 35+ years ago Lentigo maligna Hx, x2 (excision) Surgical History History of transurethral resection of prostate LMA, [facility] (06/14/24) Hx of bilateral cataract extraction Hx of rotator cuff surgery left: x3 and bicep tendon repair History of eye surgery lens implants bilat History of total hip replacement Right History of appendectomy Family History Uncle Prostate cancer paternal uncle Grandfather (Paternal) Prostate cancer Father Heart disease Hypertension Social History Smoking Status: Former smoker (quit 40 years ago) Tobacco Type: Cigarettes and Smokeless Tobacco (Dip or Chew) Smoking End Date: quit 20 yrs ago; Second Hand Exposure: No; Do You Dip or Chew Tobacco: No (quit 2 weeks ago); Tobacco Cessation Education Requested by Patient: No Hx Alcohol Use: Yes Alcohol type: wine Hx Substance Use: No Preferred Language: Vietnamese Communication Ability: Effective Visual Impairment: No Limitations Hearing Ability: Normal Business Law Instructor Required: No Beliefs That Will Affect Care: None marital status: Current Living Situation: Spouse current occupational status: retired Other Information That Helps Us Care for You: No Feels Safe at Home: Yes Safety Concerns: Feels Safe At This Time Diet: regular Assistive Devices: Glasses Review of Systems Review of Systems: All systems reviewed and are unremarkable except as noted below Physical Exam Physical Exam: Lying in bed without any acute distress Constitutional: well developed, well nourished, + ill appearing and + obese Eyes: PERRL, conjunctivae normal, anicteric sclerae ENMT: external ear and nose normal, oropharynx normal Neck: trachea midline, no thyromegaly Respiratory: normal respiratory effort, lungs clear to auscultation Cardiovascular: Rate/Rhythm: regular rate and regular rhythm; not tachycardic Heart Sounds: normal S1 and normal S2; no murmur Extremities: no edema Gastrointestinal (Abdomen): Inspection/Auscultation: normal bowel sounds; abdomen not distended Percussion/Palpation: abdomen soft; abdomen nontender Musculoskeletal: No acute arthritis involving any of the joint Neurologic: moves all extremities; no focal motor deficits Lymphatic: no cervical or axillary lymphadenopathy Results & Data Results & Data Vital Signs (Past 12 Hours) Vital Signs Temp Pulse Pulse Resp BP Pulse Ox O2 Del Method 10/11/25 13:36 Room Air 10/11/25 13:03 74 16 129/83 97 Room Air 10/11/25 12:33 36.3 C L 75 16 133/84 97 Nasal Cannula 10/11/25 12:10 36.4 C L 74 12 137/88 96 Nasal Cannula 10/11/25 12:00 72 14 135/76 96 Nasal Cannula 10/11/25 11:50 74 16 133/87 95 Oxymask 10/11/25 11:40 87 16 129/82 94 Oxymask 10/11/25 11:29 36 C L 85 18 162/88 H 97 Oxymask 10/11/25 08:05 36.6 C 66 20 155/101 H 98 Room Air O2 Flow Rate 10/11/25 13:36 10/11/25 13:03 10/11/25 12:33 2 10/11/25 12:10 2 10/11/25 12:00 2 10/11/25 11:50 3 10/11/25 11:40 3 10/11/25 11:29 6 10/11/25 08:05 Medications Administered Current Inpatient Medications Acetaminophen (Acetaminophen 500 Mg Tab) 1,000 mg PO PREOP GRACIE Stop: 10/11/25 18:00 Last Admin: 10/11/25 08:21 Dose: 1,000 mg Acetaminophen (Acetaminophen 500 Mg Tab) 1,000 mg PO Q8H PRN PRN Reason: MILD Pain (1,2,3) & Pre PT Stop: 11/10/25 12:32 Al Hydrox/Mg Hydrox/Simethicone (Aluminum/Magnesium Susp 30 Ml Udc) 30 ml PO Q6H PRN PRN Reason: Dyspepsia Stop: 11/10/25 12:32 Allopurinol (Allopurinol 300 Mg Tab) 300 mg PO QPM GRACIE Stop: 11/10/25 20:59 Artificial Tears (Artificial Tears) 1 drops OP 5XDQ4H PRN PRN Reason: Dryness Stop: 11/10/25 12:39 Atropine Sulfate (Atropine Sulfate 0.1 Mg/Ml 10ml Syr) 0.5 mg IV Q1M PRN PRN Reason: PACU Use-HR<40 &/or Bradycardi Stop: 10/11/25 17:10 Bisacodyl (Bisacodyl 10 Mg Supp) 10 mg TX DAILY PRN PRN Reason: Constipation Stop: 11/10/25 12:32 Celecoxib (Celebrex 200 Mg Cap) 200 mg PO PREOP GRACIE Stop: 10/11/25 18:00 Last Admin: 10/11/25 08:21 Dose: 200 mg Diphenhydramine HCl (Diphenhydramine Capsule 25 Mg Cap) 25 mg PO Q6H PRN PRN Reason: Allergic Rhinitis/Insomnia Stop: 11/10/25 12:32 Ephedrine Sulfate (Ephedrine Sulfate 50 Mg/Ml Amp) 5 mg IV Q5M PRN PRN Reason: PACU Use Only-SBP<90 mmHg Stop: 10/11/25 17:10 Famotidine (Famotidine 20 Mg Tab) 20 mg PO Q12H PRN PRN Reason: Dyspepsia Stop: 11/10/25 12:32 Fentanyl Citrate (Fentanyl Citrate Pf 100 Mcg/2 Ml Vial) 25 mcg IV Q5M PRN PRN Reason: PACU Use Only-Pain Stop: 10/11/25 17:10 Last Admin: 10/11/25 11:55 Dose: 25 mcg Gabapentin (Gabapentin 300 Mg Cap) 300 mg PO PREOP GRACIE Stop: 10/11/25 18:00 Last Admin: 10/11/25 08:21 Dose: 300 mg Hydromorphone HCl (Hydromorphone Inj 0.5 Mg/0.5 Ml Syr) 0.5 mg IV Q3H PRN PRN Reason: MODERATE Pain(4,5,6)/Pre PT Stop: 10/25/25 12:32 Hydromorphone HCl (Hydromorphone Inj 1 Mg/Ml Syringe) 1 mg IV Q3H PRN PRN Reason: SEVERE Pain (7,8,9,10) Stop: 10/25/25 12:32 Hydroxyzine HCl (Hydroxyzine Hcl 25 Mg Tab) 25 mg PO Q8H PRN PRN Reason: Anxiety Stop: 11/10/25 12:32 Lactated Ringer's (Lr) 1,000 mls @ 60 mls/hr IV .[id number] GRACIE Stop: 10/11/25 22:39 Last Admin: 10/11/25 08:22 Dose: Not Given Cefazolin Sodium (Ancef 2000mg) 2,000 mg in 15 mls @ 3.75 mls/min IV PREOP GRACIE; Protocol Stop: 10/11/25 18:00 Last Admin: 10/11/25 09:39 Dose: 3.75 mls/min Lactated Ringer's (Lr) 1,000 mls @ 15 mls/hr IV .Q24H GRACIE Stop: 10/12/25 05:59 Last Infusion: 10/11/25 09:38 Dose: Infused Sodium Chloride (Nss) 1,000 mls @ 100 mls/hr IV .Q10H GRACIE Stop: 10/14/25 12:32 Last Admin: 10/11/25 13:01 Dose: 100 mls/hr Acetaminophen (Ofirmev) 1,000 mg in 100 mls @ 400 mls/hr IV Q8H PRN PRN Reason: MILD Pain (1,2,3) & Pre PT Stop: 10/12/25 12:34 Last Admin: 10/11/25 13:09 Dose: 400 mls/hr Cefazolin Sodium (Ancef 2000mg) 2,000 mg in 15 mls @ 3.75 mls/min IV Q8H GRACIE Stop: 10/14/25 10:03 Promethazine HCl (Phenergan) 12.5 mg in 50.5 mls @ 202 mls/hr IV Q6H PRN PRN Reason: Nausea And Vomiting Stop: 11/10/25 12:32 Lorazepam 0.5 mg/ Syringe 0.5 mls @ 2 mls/min IV Q8H PRN PRN Reason: Sedation/Anxiety Stop: 11/10/25 12:32 Dexamethasone 6 mg/ Syringe 1.5 mls @ 1 mls/min IV DAILY GRACIE Stop: 10/14/25 09:02 Influenza Virus Vaccine Quadrival (Do Not Administer Flu Vaccine) 1 each N/A PRN PRN PRN Reason: Notification Stop: 11/10/25 12:32 Loratadine (Loratadine 10 Mg Tab) 10 mg PO DAILY PRN PRN Reason: Allergy Symptoms Stop: 11/10/25 12:32 Lorazepam (Lorazepam 0.5 Mg Tab) 0.5 mg PO Q8H PRN PRN Reason: Sedation/Anxiety Stop: 11/10/25 12:32 Magnesium Hydroxide (Magnesium Hydroxide Susp 30 Ml Udc) 30 ml PO Q24H PRN PRN Reason: Constipation Stop: 11/10/25 12:32 Metoclopramide HCl (Metoclopramide Hcl Inj 5 Mg/Ml 2 Ml Vial) 10 mg IV Q6H PRN PRN Reason: Nausea &/or Vomiting Stop: 11/10/25 12:32 Metoprolol Tartrate (Metoprolol Tartrate 25 Mg Tab) 25 mg PO BID GRACIE Stop: 11/10/25 20:59 Naloxone HCl (Naloxone Hcl 0.4 Mg/1 Ml Vial/Carp) 0.1 mg IV Q5M PRN PRN Reason: Oversedation/Resp depression Stop: 11/10/25 12:32 Ondansetron HCl (Ondansetron Inj 2 Mg/Ml 2 Ml Vial) 4 mg IV ONCE PRN PRN Reason: PACU Use Only-Nausea/Vomiting Stop: 10/11/25 17:10 Ondansetron HCl (Ondansetron Inj 2 Mg/Ml 2 Ml Vial) 4 mg IV Q6H PRN PRN Reason: Nausea &/or Vomiting Stop: 11/10/25 12:32 Ondansetron HCl (Ondansetron 4 Mg Od Tab) 4 mg PO Q6H PRN PRN Reason: Nausea Stop: 11/10/25 12:32 Oxycodone HCl (Oxycodone Hcl Ir 5 Mg Tab (Immediate Release)) 5 - 10 mg PO Q4H PRN PRN Reason: MOD/SEV Pain & Pre PT Stop: 10/25/25 12:32 Pneumococcal Polyvalent Vaccine (Do Not Administer Pneumococcal Vaccine) 1 each N/A PRN PRN PRN Reason: Notification Stop: 11/10/25 12:32 Polyethylene Glycol (Polyethylene (Miralax) 17 Gm Pack) 17 gm PO Q6 GRACIE Stop: 11/11/25 05:59 Saccharomyces Boulardii (Saccharomyces Boulardii 250 Mg Cap) 250 mg PO QAM GRACIE Stop: 11/11/25 08:59 Senna/Docusate Sodium (Docusate Sodium/Senna 50/8.6mg Tab) 2 tab PO HS GRACIE Stop: 11/10/25 20:59 Sodium Biphosphate/Sodium Phosphate (Sod Phosphate/Sod Biphosphate Enema 132 Ml Btl) 132 ml TX ONE PRN PRN Reason: Constipation Stop: 11/10/25 12:32 Tramadol HCl (Tramadol Hcl 50 Mg Tablet) 50 - 100 mg PO Q4H PRN PRN Reason: MOD/SEV Pain & Pre PT Stop: 11/10/25 12:32 Vitamin D (Cholecalciferol 25 Mcg (1000 Units) Tab) 50 mcg PO DAILY GRACIE Stop: 11/11/25 08:59
[2025-10-11] MEDS: ACETAMINOPHEN 500 MG TAB PO PRN (21:37)
[2025-10-11] MEDS: DOCUSATE SODIUM/SENNA 50/8.6MG TAB PO SCH (21:38)
[2025-10-11] MEDS: METOPROLOL TARTRATE 25 MG TAB PO SCH (21:38)
[2025-10-11] MEDS: ALUMINUM/MAGNESIUM SUSP 30 ML UDC PO PRN (23:32)
[2025-10-12] MEDS: POLYETHYLENE (MIRALAX) 17 GM PACK PO SCH (05:18)
[2025-10-12 06:42] LABS: Hematocrit (blood only) 39.5 % (42.0-52.0); Hemoglobin 13.7 g/dL (14.0-18.0); Immature Granulocytes # (auto) 0.07 K/uL (0.01-0.20); Immature Granulocytes % (auto) 0.5 %; Mean Corpuscular Hemoglobin 32.9 pg (25.0-34.0); Mean Corpuscular Volume 95.0 fL (80.0-100.0); Platelet Count 129 K/uL (130-400); RDW Standard Deviation 47.9 fL (36.4-46.3); Red Blood Count 4.16 M/uL (4.70-6.10); White Blood Count 14.14 K/ul (4.8-10.8)
[2025-10-12 07:16] LABS: Anion Gap 6.0 (3-11); Blood Urea Nitrogen 16.0 mg/dl (6-23); Calcium 8.9 mg/dl (8.6-10.3); Carbon Dioxide 29.0 mmol/L (21-32); Chloride 103.0 mmol/L (98-107); Creatinine Clr Calc Pharmacy 90.6 ml/min; Glucose 118.0 mg/dl (70-99(Fasting)); Magnesium 2.2 mg/dl (1.7-2.4); Potassium 4.2 mmol/L (3.5-5.1); Sodium 138.0 mmol/L (136-145)
--- NOTE | 2025-10-12 08:18 | Orthopedic Progress Note ---
Date of Service October 12, 2025 Assessment & Plan (1) Spondylolisthesis, lumbar region: Plan: Freeman is postoperative day 1 status post L5-S1 decompression and fusion. He is can start physical therapy today. Continue with pain control. Maintain HELEN drain. DVT prophylaxis is in the form teds and SCDs. Work on aggressive bowel regimen. Anticipate discharge home within the next couple of days Admission and Anticipated Discharge Date Admission Date: October 11, 2025 Subjective Freeman is postoperative day 1 status post L5-S1 decompression and fusion. Has some back and buttock pain. HELEN drain output left shift is 20 cc. H&H this morning are 13.7 and 39.5 respectively. No other complaints. Review of Systems Review of Systems: All systems reviewed & are unremarkable except as noted in HPI & below Physical Exam Physical Exam: He is up and ambulatory using a walker going to the restroom no acute distress lumbar dressing is clean dry and intact with functioning HELEN drain Strength intact bilateral lower extremities Results & Data Vital Signs (Past 12 Hours) Vital Signs Temp Pulse Resp BP Pulse Ox O2 Del Method 10/12/25 07:45 36.6 C 77 16 135/76 94 Room Air 10/12/25 05:18 36.8 C 10/12/25 03:12 36.3 C L 72 16 151/84 H 98 Room Air 10/11/25 23:00 36.3 C L 69 18 142/83 H 94 Room Air 10/11/25 21:36 83 142/92 H
[2025-10-12] MEDS: CHOLECALCIFEROL 25 MCG (1000 UNITS) TAB PO SCH (09:03)
[2025-10-12] MEDS: SACCHAROMYCES BOULARDII 250 MG CAP PO SCH (09:04)
[2025-10-12] MEDS: dexAMETHasone 6 MG in SYRINGE 0 ML IV SCH (09:04)
--- NOTE | 2025-10-12 16:09 | Hospitalist Progress Note ---
Date of Service October 12, 2025 Assessment & Plan (1) Spondylolisthesis, lumbar region: (2) Lumbosacral radiculopathy: Plan: -Status post L5-S1 decompression and fusion on 10/11/2025 -POD 1 -Complains of minimal pain at the lower back with radiation of pain and numbness tingling in the lower extremities -Management will be as per orthospine -continue to follow BMP, CBC daily -medications streamlined to reduce polypharmacy -encouraged use of pain medication (3) Hypertension: Plan: -Blood pressure remains stable at 129/83 -Will continue with current medications (4) Idiopathic polyneuropathy: Plan: -Has been ongoing problem -Does not feel that it is getting worse -Will continue gabapentin (5) GERD (gastroesophageal reflux disease): Plan: No acute symptoms Continue Pepcid and Maalox (6) Essential tremor: Plan: Seems to be stable (7) BPH (benign prostatic hyperplasia): Plan: History of LUTS Denies any symptoms Plan I spent a total of 45 minutes in direct patient care, including [id number] time with the patient and/or family, reviewing medical records, ordering and reviewing diagnostic tests, and coordinating care with other healthcare providers. This time includes: history taking, physical examination, medical decision making, counseling, ECG interpretation, imaging interpretation, lab interpretation, orders, and education, excluding time spent in the performance of separately billed services. Admission and Anticipated Discharge Date Admission Date: October 11, 2025 Subjective Patient seen and examined at bedside. Patient doing well today. Having back pain but reluctant to take opioid medications as they make him constipated. Review of Systems Review of Systems: CONSTITUTIONAL: Patient denies fevers, chills, sweats and weight changes. EYES: Patient denies any visual symptoms. EARS, NOSE, AND THROAT: No difficulties with hearing. No symptoms of rhinitis or sore throat. CARDIOVASCULAR: Patient denies chest pains, palpitations, orthopnea and paroxysmal nocturnal dyspnea. RESPIRATORY: No dyspnea on exertion, no wheezing or cough. GI: No nausea, vomiting, diarrhea, constipation, abdominal pain, hematochezia or melena. : No urinary hesitancy or dribbling. No nocturia or urinary frequency. No ab normal urethral discharge. MUSCULOSKELETAL: back pain NEUROLOGIC: No chronic headaches, no seizures. Patient denies numbness, tingling or weakness. PSYCHIATRIC: Patient denies problems with mood disturbance. No problems with anxiety. ENDOCRINE: No excessive urination or excessive thirst. DERMATOLOGIC: Patient denies any rashes or skin changes. Physical Exam Physical Exam: Gen: A&O 3 NAD HEENT: NCAT, EOMI, not icteric. External ears normal. No rhinorrhea. Moist mucous membranes. Neck: Supple, full range of motion, no observable masses, No meningeal sign. Lungs: No Respiratory distress. CV: RRR, no edema. Abdomen: Soft, nondistended, No rebound tenderness. MSK: No joint swelling, no redness. s/p drain placement Skin: No rashes, petechiae, lesions. Normal color per patient. Neuro: Normal Gait, Grossly intact. Psych: Appropriate for situation. Results & Data Results & Data Vital Signs (Past 12 Hours) Vital Signs Temp Pulse Resp BP Pulse Ox O2 Del Method 10/12/25 14:28 36.4 C L 70 16 125/73 97 Room Air 10/12/25 11:09 37.1 C 71 16 136/81 97 Room Air 10/12/25 07:45 36.6 C 77 16 135/76 94 Room Air 10/12/25 05:18 36.8 C Laboratory Results -personally reviewed, elevated leukocytosis likely reactive, Hgb still high but below baseline Medications Administered Acetaminophen (Acetaminophen 500 Mg Tab) 1,000 mg PO Q8H PRN PRN Reason: MILD Pain (1,2,3) & Pre PT Stop: 11/10/25 12:32 Last Admin: 10/12/25 05:18 Dose: 1,000 mg Documented By: Admin: 10/11/25 21:37 Dose: 1,000 mg Documented By: RE Al Hydrox/Mg Hydrox/Simethicone (Aluminum/Magnesium Susp 30 Ml Udc) 30 ml PO Q6H PRN PRN Reason: Dyspepsia Stop: 11/10/25 12:32 Last Admin: 10/12/25 14:29 Dose: 30 ml Documented By: Admin: 10/12/25 05:18 Dose: 30 ml Documented By: Admin: 10/11/25 23:32 Dose: 30 ml Documented By: RE Allopurinol (Allopurinol 300 Mg Tab) 300 mg PO QPM GRACIE Stop: 11/10/25 20:59 Last Admin: 10/11/25 21:37 Dose: 300 mg Documented By: RE Cefazolin Sodium (Ancef 2000mg) 2,000 mg in 15 mls @ 3.75 mls/min IV Q8H GRACIE Stop: 10/14/25 10:03 Last Admin: 10/12/25 10:22 Dose: 3.75 mls/min Documented By: Admin: 10/12/25 02:45 Dose: 3.75 mls/min Documented By: Admin: 10/11/25 17:44 Dose: 3.75 mls/min Documented By: gato Dexamethasone 6 mg/ Syringe 1.5 mls @ 1 mls/min IV DAILY GRACIE Stop: 10/14/25 09:02 Last Admin: 10/12/25 09:04 Dose: 1 mls/min Documented By: EDEL Metoprolol Tartrate (Metoprolol Tartrate 25 Mg Tab) 25 mg PO BID GRACIE Stop: 11/10/25 20:59 Last Admin: 10/12/25 12:28 Dose: 25 mg Documented By: Admin: 10/11/25 21:38 Dose: 25 mg Documented By: RE Polyethylene Glycol (Polyethylene (Miralax) 17 Gm Pack) 17 gm PO Q6 GRACIE Stop: 11/11/25 05:59 Last Admin: 10/12/25 12:33 Dose: 17 gm Documented By: Admin: 10/12/25 05:18 Dose: 17 gm Documented By: RE Saccharomyces Boulardii (Saccharomyces Boulardii 250 Mg Cap) 250 mg PO QAM GRACIE Stop: 11/11/25 08:59 Last Admin: 10/12/25 09:04 Dose: 250 mg Documented By: EDEL Senna/Docusate Sodium (Docusate Sodium/Senna 50/8.6mg Tab) 2 tab PO HS GRACIE Stop: 11/10/25 20:59 Last Admin: 10/11/25 21:38 Dose: 2 tab Documented By: RE Tramadol HCl (Tramadol Hcl 50 Mg Tablet) 50 - 100 mg PO Q4H PRN PRN Reason: MOD/SEV Pain & Pre PT Stop: 11/10/25 12:32 Last Admin: 10/12/25 12:34 Dose: 50 mg Documented By: EDEL Vitamin D (Cholecalciferol 25 Mcg (1000 Units) Tab) 50 mcg PO DAILY GRACIE Stop: 11/11/25 08:59 Last Admin: 10/12/25 09:03 Dose: 50 mcg Documented By: EDEL
[2025-10-12] MEDS: FAMOTIDINE 20 MG TAB PO PRN (21:00)
[2025-10-13 05:54] LABS: Hematocrit (blood only) 33.3 % (42.0-52.0); Hemoglobin 11.5 g/dL (14.0-18.0); Mean Corpuscular Hemoglobin 33.1 pg (25.0-34.0); Mean Corpuscular Volume 96.0 fL (80.0-100.0); Platelet Count 112 K/uL (130-400); RDW Standard Deviation 47.7 fL (36.4-46.3); Red Blood Count 3.47 M/uL (4.70-6.10); White Blood Count 11.30 K/ul (4.8-10.8)
[2025-10-13 06:08] LABS: Anion Gap 6.0 (3-11); Blood Urea Nitrogen 14.0 mg/dl (6-23); Calcium 8.1 mg/dl (8.6-10.3); Carbon Dioxide 25.0 mmol/L (21-32); Chloride 104.0 mmol/L (98-107); Creatinine Clr Calc Pharmacy 84.6 ml/min; Glucose 100.0 mg/dl (70-99(Fasting)); Potassium 3.9 mmol/L (3.5-5.1); Sodium 135.0 mmol/L (136-145)
--- NOTE | 2025-10-13 10:45 | Orthopedic Progress Note ---
Date of Service October 13, 2025 Assessment & Plan (1) Spondylolisthesis, lumbar region: Plan: This time we will continue physical therapy monitor his HELEN output anticipate discharge home tomorrow. Admission and Anticipated Discharge Date Admission Date: October 11, 2025 Subjective Patient's back pain is controlled leg pain improved Physical Exam Physical Exam: Patient is up and ambulating. Strength is intact. HELEN drain functioning. Results & Data Vital Signs (Past 12 Hours) Vital Signs Temp Pulse Resp BP Pulse Ox O2 Del Method 10/13/25 07:56 36.9 C 90 18 159/53 H 98 Room Air 10/12/25 23:35 37.1 C 76 18 131/75 95 Room Air
--- NOTE | 2025-10-13 14:57 | Hospitalist Progress Note ---
Date of Service October 13, 2025 Assessment & Plan (1) Spondylolisthesis, lumbar region: (2) Lumbosacral radiculopathy: Plan: -Status post L5-S1 decompression and fusion on 10/11/2025 -POD 2 -Management will be as per orthospine -continue to follow BMP, CBC daily -medications streamlined to reduce polypharmacy -encouraged use of pain medication (3) Hypertension: Plan: -Blood pressure remains stable at 129/83 -Will continue with current medications (4) Idiopathic polyneuropathy: Plan: -Has been ongoing problem -Will continue gabapentin (5) GERD (gastroesophageal reflux disease): Plan: -No acute symptoms -Continue Pepcid and Maalox (6) Essential tremor: Plan: -Seems to be stable (7) BPH (benign prostatic hyperplasia): Plan: -History of LUTS Plan I spent a total of 35 minutes in direct patient care, including [id number] time with the patient and/or family, reviewing medical records, ordering and reviewing diagnostic tests, and coordinating care with other healthcare providers. This time includes: history taking, physical examination, medical decision making, counseling, ECG interpretation, imaging interpretation, lab interpretation, orders, and education, excluding time spent in the performance of separately billed services. Admission and Anticipated Discharge Date Admission Date: October 11, 2025 Subjective Patient seen and examined at bedside. Patient states he wants to go home. Denies surgical site pain today. Review of Systems Review of Systems: CONSTITUTIONAL: Patient denies fevers, chills, sweats and weight changes. EYES: Patient denies any visual symptoms. EARS, NOSE, AND THROAT: No difficulties with hearing. No symptoms of rhinitis or sore throat. CARDIOVASCULAR: Patient denies chest pains, palpitations, orthopnea and paroxysmal nocturnal dyspnea. RESPIRATORY: No dyspnea on exertion, no wheezing or cough. GI: No nausea, vomiting, diarrhea, constipation, abdominal pain, hematochezia or melena. : No urinary hesitancy or dribbling. No nocturia or urinary frequency. No abnormal urethral discharge. MUSCULOSKELETAL: back pain NEUROLOGIC: No chronic headaches, no seizures. Patient denies numbness, tingling or weakness. PSYCHIATRIC: Patient denies problems with mood disturbance. No problems with anxiety. ENDOCRINE: No excessive urination or excessive thirst. DERMATOLOGIC: Patient denies any rashes or skin changes. Physical Exam 2 Physical Exam: Gen: A&O 3 NAD HEENT: NCAT, EOMI, not icteric. External ears normal. No rhinorrhea. Moist mucous membranes. Neck: Supple, full range of motion, no observable masses, No meningeal sign. Lungs: No Respiratory distress. CV: RRR, no edema. Abdomen: Soft, nondistended, No rebound tenderness. MSK: No joint swelling, no redness. s/p drain placement Skin: No rashes, petechiae, lesions. Normal color per patient. Neuro: Normal Gait, Grossly intact. Psych: Appropriate for situation. Results & Data Results & Data Vital Signs (Past 12 Hours) Vital Signs Temp Pulse Resp BP Pulse Ox O2 Del Method 10/13/25 13:54 36.5 C 70 16 126/72 94 Room Air 10/13/25 07:56 36.9 C 90 18 159/53 H 98 Room Air Laboratory Results -personally reviewed, Hgb downtrend expected post op, leukocytosis downtrending, creatinine at baseline Medications Administered Acetaminophen (Acetaminophen 500 Mg Tab) 1,000 mg PO Q8H PRN PRN Reason: MILD Pain (1,2,3) & Pre PT Stop: 11/10/25 12:32 Last Admin: 10/13/25 14:16 Dose: 1,000 mg Documented By: Admin: 10/13/25 08:44 Dose: 1,000 mg Documented By: Admin: 10/12/25 05:18 Dose: 1,000 mg Documented By: Admin: 10/11/25 21:37 Dose: 1,000 mg Documented By: RE Allopurinol (Allopurinol 300 Mg Tab) 300 mg PO QPM GRACIE Stop: 11/10/25 20:59 Last Admin: 10/12/25 20:54 Dose: 300 mg Documented By: Admin: 10/11/25 21:37 Dose: 300 mg Documented By: RE Famotidine (Famotidine 20 Mg Tab) 20 mg PO Q12H PRN PRN Reason: Dyspepsia Stop: 11/10/25 12:32 Last Admin: 10/12/25 21:00 Dose: 20 mg Documented By: YESENIA Cefazolin Sodium (Ancef 2000mg) 2,000 mg in 15 mls @ 3.75 mls/min IV Q8H GRACIE Stop: 10/14/25 10:03 Last Admin: 10/13/25 10:22 Dose: 3.75 mls/min Documented By: Admin: 10/13/25 01:50 Dose: 3.75 mls/min Documented By: Admin: 10/12/25 17:33 Dose: 3.75 mls/min Documented By: Admin: 10/12/25 10:22 Dose: 3.75 mls/min Documented By: Admin: 10/12/25 02:45 Dose: 3.75 mls/min Documented By: Admin: 10/11/25 17:44 Dose: 3.75 mls/min Documented By: gato Dexamethasone 6 mg/ Syringe 1.5 mls @ 1 mls/min IV DAILY GRACIE Stop: 10/14/25 09:02 Last Admin: 10/13/25 08:43 Dose: 1 mls/min Documented By: Admin: 10/12/25 09:04 Dose: 1 mls/min Documented By: EDEL Metoprolol Tartrate (Metoprolol Tartrate 25 Mg Tab) 25 mg PO BID GRACIE Stop: 11/10/25 20:59 Last Admin: 10/13/25 08:42 Dose: 25 mg Documented By: Admin: 10/12/25 20:54 Dose: 25 mg Documented By: Admin: 10/12/25 12:28 Dose: 25 mg Documented By: Admin: 10/11/25 21:38 Dose: 25 mg Documented By: RE Oxycodone HCl (Oxycodone Hcl Ir 5 Mg Tab (Immediate Release)) 5 - 10 mg PO Q4H PRN PRN Reason: MOD/SEV Pain & Pre PT Stop: 10/25/25 12:32 Last Admin: 10/12/25 20:54 Dose: 10 mg Documented By: YESENIA Polyethylene Glycol (Polyethylene (Miralax) 17 Gm Pack) 17 gm PO Q6 GRACIE Stop: 11/11/25 05:59 Last Admin: 10/13/25 11:41 Dose: 17 gm Documented By: Admin: 10/13/25 06:05 Dose: Not Given Documented By: Admin: 10/13/25 01:50 Dose: 17 gm Documented By: Admin: 10/12/25 17:33 Dose: 17 gm Documented By: Admin: 10/12/25 12:33 Dose: 17 gm Documented By: Admin: 10/12/25 05:18 Dose: 17 gm Documented By: RE Saccharomyces Boulardii (Saccharomyces Boulardii 250 Mg Cap) 250 mg PO QAM GRACIE Stop: 11/11/25 08:59 Last Admin: 10/13/25 08:42 Dose: 250 mg Documented By: Admin: 10/12/25 09:04 Dose: 250 mg Documented By: EDEL Senna/Docusate Sodium (Docusate Sodium/Senna 50/8.6mg Tab) 2 tab PO HS GRACIE Stop: 11/10/25 20:59 Last Admin: 10/12/25 20:54 Dose: 2 tab Documented By: Admin: 10/11/25 21:38 Dose: 2 tab Documented By: RE Vitamin D (Cholecalciferol 25 Mcg (1000 Units) Tab) 50 mcg PO DAILY GRACIE Stop: 11/11/25 08:59 Last Admin: 10/13/25 08:42 Dose: 50 mcg Documented By: Admin: 10/12/25 09:03 Dose: 50 mcg Documented By: EDEL
[2025-10-13] MEDS: ALUMINUM/MAGNESIUM/SIMETH (MAALOX MAX) 30 ML UDC PO PRN (23:32)
[2025-10-14 06:22] LABS: Hematocrit (blood only) 34.1 % (42.0-52.0); Hemoglobin 12.0 g/dL (14.0-18.0); Mean Corpuscular Hemoglobin 33.6 pg (25.0-34.0); Mean Corpuscular Volume 95.5 fL (80.0-100.0); Platelet Count 134 K/uL (130-400); RDW Standard Deviation 47.2 fL (36.4-46.3); Red Blood Count 3.57 M/uL (4.70-6.10); White Blood Count 11.18 K/ul (4.8-10.8)
[2025-10-14 06:44] LABS: Anion Gap 6.0 (3-11); Blood Urea Nitrogen 14.0 mg/dl (6-23); Calcium 8.4 mg/dl (8.6-10.3); Carbon Dioxide 27.0 mmol/L (21-32); Chloride 104.0 mmol/L (98-107); Creatinine Clr Calc Pharmacy 87.5 ml/min; Glucose 103.0 mg/dl (70-99(Fasting)); Potassium 4.0 mmol/L (3.5-5.1); Sodium 137.0 mmol/L (136-145)
[2025-10-14 08:01] VITALS: PULSE 80; RESP 18; TEMP 97.7; O2SAT 98
--- NOTE | 2025-10-14 09:04 | Discharge Summary ---
Date of Service October 14, 2025 Admission HPI Per Admitting Provider This is a 75-year-old male that presents with chronic persistent back and leg pain after failing course of nonoperative care is here for surgical invention. Principal Diagnosis Lumbar spondylolisthesis Discharge Data Allergies Allergy/AdvReac Type Severity Reaction Status Date / Time No Known Allergies Allergy Verified 10/11/25 08:03 Consultations 10/11/25 12:33 Consult Hospitalist Routine Procedures Performed Operation Date: 10/11/25 09:15 Actual Procedures p L5-S1 Decompression and Fusion(Not Applicable) - Hugh Morataya DO Ordered Studies 10/11/25 [place] lumbar spine 2-3V Routine Hospital Course (1) Spondylolisthesis, lumbar region: Patient went lumbar decompression fusion trial as well as taken orthopedic for postoperative. Postop he progressed appropriately. Marked improvement in his a mbulation. HELEN drain decreasing. Excellent strength testing. Pain well- controlled. Subsidy discharged home. Discharge orders and instructions found in the chart for further review. Total Time Total Time Spent Total Time Spent (In Minutes): 20 minutes Discharge Plan Discharge Items Patient Disposition: Home - Self-Care Reason For Visit: Lumbosacral Spondylosis with Radiculopathy, Spondy Discharge Diagnosis: Lumbar spondylolisthesis Activity: As commented below Non-emergency contact: Primary Care Provider Call non-emergency contact if: you have any medication questions Follow-up/Referrals: Drake Alonso M.D. [Primary Care Provider] - Diet: Regular Addtl Attending Provider Instructions: ACTIVITY RECOMMENDATIONS: SELF CARE INSTRUCTIONS AFTER THORACIC/LUMBAR FUSIONS 1. You may walk to your tolerance. It is good exercise for your legs and back. Expect some back and intermittent leg aches and pains. 2. You may perform "counter-top" level activities (make a sandwich, mima with a project, etc.). 3. No bending or lifting of more than 10 pounds or back twisting of any nature (roll like a log when turning in bed). 4. You may ride in a car for 20-30 minutes at a time. No driving until after your first visit with your doctor. 5. Frequent changes of position and restricting sitting to 30 minutes at a time will help limit the amount of back spasms and stiffness you may experience. 6. You may discontinue the use of ambulatory aids (cane, crutches, etc.) once your strength and confidence allow. 7. You may mechanical reliability engineer the shower and let water strike your incision when you arrive home at least once daily. Do not take a tub bath, sit in a hot tub or go into a swimming pool until after your first recheck in the office. 8. You may resume previous diet. SPECIAL CARE INSTRUCTIONS: VERY IMPORTANT TO READ AND REVIEW A. Your surgical incision has been closed with a cosmetic suture under the skin that will dissolve in about 6 weeks. In 14 days, you can use a pair of clean scissors and cut the suture that is left outside of the skin at the ends of your incision. 1. The small skin tapes can be removed 7 days after surgery if they have not fallen off by that point. 2. You may keep the wound open to air as much as possible to promote healing after post-op day number 5 unless told otherwise by your doctor. 3. If you think the wound looks like it is becoming infected (redness or worsening drainage) and/or you are experiencing fever, chill or worsening back pain and muscle spasms, contact the office so that we may evaluate you as soon as possible. B. Complications are uncommon, but please contact us if you have any signs or symptoms of: 1. wound infection (fever higher than 102.5 degrees F, redness, separation of wound, drainage, or increasing pain from the incision) 2. blood clots in legs (pain, swelling, redness and warmth in legs) 3. urinary tract infection (fever higher than 102.5 degrees F, burning upon urination or increased frequency of urination) 4. nerve problems (inability to walk on your toes or heels, numbness, loss of bowel or bladder control) 5. any other symptoms that concern you C. Please call the office at if you have any concerns or questions about your operation or recovery. D. No smoking! Smoking drastically decreases the chance of a solid fusion. E. Do not take any anti-inflammatory medications (Indocin, Advil, Motrin, Aspirin, Naprosyn, etc.) as these may inhibit the chance of a solid fusion. Tylenol is okay to take for pain. MANAGING PAIN AFTER SPINAL SURGERY 1. Narcotic medication is intended for short-term use and will be provided for surgical pain. Surgical pain usually lasts for a period of 4-6 weeks. Narcotic medication includes Percocet, Vicodin, Darvocet, Tylenol #3 or Lortab. 2. Longer-term pain is more appropriately treated with non-narcotic medication such as Tylenol ES. 3. Muscle spasm is not appropriately treated with narcotics. Muscle relaxers such as Soma, Flexeril or Skelaxin can be used along with Tylenol ES. 4. Remember that we all live with some "aches and pains". This is not unusual or uncommon after an injury or as we get older. a. Back pain is expected and may include muscle spasms for 4 to 6 weeks after surgery. The pain should gradually improve. If the pain worsens for no apparent reason, please contact the office. b. Intermittent leg pain may also be experienced and should not be concerned about unless it worsens for no apparent reason. If so, please contact the office. 5. We will provide appropriate medication within the normal guidelines of their prescribed use. We will also be very cautious and aware of potential abuse and extended duration of patients' medication needs. a. Pain medications are for your comfort and to assist with sleep and rest so that the tissue can heal. They are not provided in order to return to normal activity and should not be used through the day. To do so or worsening pain at night can result from ongoing tissue damage and d evelopment of tolerance to the prescribed medicine. 6. Please allow 2-3 days to process refills. Prescriptions will not be mailed but must be picked up at the office. FOLLOW UP VISIT: Keep your scheduled follow-up appointment. Any questions, please call the office at . Pending Studies at Discharge: No Stand-Alone Forms: [facility], Smoking Cessation Medications and DC Order Prescriptions: New tramadol 50 mg tablet 50 mg PO Q6H PRN (Reason: pain, moderate) Qty: 30 0RF oxycodone 5 mg tablet 5 mg PO Q6H PRN (Reason: pain) Qty: 30 0RF Rx Instructions: Oxycodone for severe pain tramadol for moderate pain Continued acetaminophen 650 mg tablet extended release 650 mg PO Q8H PRN (Reason: Pain) loratadine [Claritin] 10 mg tablet 10 mg PO DAILY PRN (Reason: Allergy Symptoms) Saccharomyces boulardii [Florastor] 250 mg capsule 250 mg PO QAM nebivolol 5 mg tablet 5 mg PO DAILY allopurinol 300 mg tablet 300 mg PO QPM docusate sodium [Colace] 100 mg Capsule 100 mg PO QAM artificial tear([id number]) [GenTeal Tears Moderate] 0.1-0.3-0.2 % Drops 1 drp OPHTHALMIC (EYE) 5XD PRN (Reason: Dry Eye(S)) polyethylene glycol 3350 [Miralax] 17 gram Powder In Packet 17 g PO UD Patient Comments: every other day cholecalciferol (vitamin D3) [Vitamin D3] 25 mcg (1,000 unit) tablet 50 mcg PO DAILY Discharge Orders: Discharge Order (Routine); Ordered 10/14/25 Ordered By: [facility] Morataya Admission Data Admit Date/Time: 10/11/25 11:22 Attending Provider: Hugh Morataya Admit Provider: Hugh Morataya Primary Care Provider: Drake Alonso Other Providers: [facility],Home Health; Ekaterina Bermudez
[2025-10-14 11:03] VITALS: BP 110/72
--- NOTE | 2025-10-14 12:49 | Hospitalist Progress Note ---
Date of Service October 14, 2025 Assessment & Plan (1) Spondylolisthesis, lumbar region: (2) Lumbosacral radiculopathy: Plan: -Status post L5-S1 decompression and fusion on 10/11/2025 -POD 3 -Management will be as per orthospine -continue to follow BMP, CBC daily -medications streamlined to reduce polypharmacy -encouraged use of pain medication -medically stable for discharge home (3) Hypertension: Plan: -Blood pressure remains stable at 129/83 -Will continue with current medications (4) Idiopathic polyneuropathy: Plan: -Has been ongoing problem -Will continue gabapentin (5) GERD (gastroesophageal reflux disease): Plan: -No acute symptoms -Continue Pepcid and Maalox (6) Essential tremor: Plan: -Seems to be stable (7) BPH (benign prostatic hyperplasia): Plan: -History of LUTS Plan I spent a total of 35 minutes in direct patient care, including [id number] with the patient and/or family, reviewing medical records, ordering and reviewing diagnostic tests, and coordinating care with other healthcare providers. This time includes: history taking, physical examination, medical decision making, counseling, ECG interpretation, imaging interpretation, lab interpretation, orders, and education, excluding time spent in the performance of separately billed services. Admission and Anticipated Discharge Date Admission Date: October 11, 2025 Subjective Patient seen and examined at bedside. Patient being discharged today, reports minimal to no pain in back. Review of Systems Review of Systems: CONSTITUTIONAL: Patient denies fevers, chills, sweats and weight changes. EYES: Patient denies any visual symptoms. EARS, NOSE, AND THROAT: No difficulties with hearing. No symptoms of rhinitis or sore throat. CARDIOVASCULAR: Patient denies chest pains, palpitations, orthopnea and paroxysmal nocturnal dyspnea. RESPIRATORY: No dyspnea on exertion, no wheezing or cough. GI: No nausea, vomiting, diarrhea, constipation, abdominal pain, hematochezia or melena. : No urinary hesitancy or dribbling. No nocturia or urinary frequency. No abnormal urethral discharge. MUSCULOSKELETAL: back pain NEUROLOGIC: No chronic headaches, no seizures. Patient denies numbness, tingling or weakness. PSYCHIATRIC: Patient denies problems with mood disturbance. No problems with anxiety. ENDOCRINE: No excessive urination or excessive thirst. DERMATOLOGIC: Patient denies any rashes or skin changes. Physical Exam Physical Exam: Gen: A&O 3 NAD HEENT: NCAT, EOMI, not icteric. External ears normal. No rhinorrhea. Moist mucous membranes. Neck: Supple, full range of motion, no observable masses, No meningeal sign. Lungs: No Respiratory distress. CV: RRR, no edema. Abdomen: Soft, nondistended, No rebound tenderness. MSK: No joint swelling, no redness. s/p drain placement Skin: No rashes, petechiae, lesions. Normal color per patient. Neuro: Normal Gait, Grossly intact. Psych: Appropriate for situation. Results & Data Results & Data Vital Signs (Past 12 Hours) Vital Signs Temp Pulse Pulse Resp BP BP Pulse Ox 10/14/25 11:01 36.5 C 76 80 18 129/64 110/72 98 10/14/25 08:00 36.5 C 80 18 129/64 98 O2 Del Method 10/14/25 11:01 10/14/25 08:00 Room Air Laboratory Results -personally reviewed, leukocytosis downtrending, Hgb stable, creatinine at baseline Medications Administered Acetaminophen (Acetaminophen 500 Mg Tab) 1,000 mg PO Q8H PRN PRN Reason: MILD Pain (1,2,3) & Pre PT Stop: 11/10/25 12:32 Last Admin: 10/14/25 09:07 Dose: 1,000 mg Documented By: Admin: 10/13/25 23:32 Dose: 1,000 mg Documented By: Admin: 10/13/25 14:16 Dose: 1,000 mg Documented By: Admin: 10/13/25 08:44 Dose: 1,000 mg Documented By: Admin: 10/12/25 05:18 Dose: 1,000 mg Documented By: Admin: 10/11/25 21:37 Dose: 1,000 mg Documented By: RE Al Hydrox/Mg Hydrox/Simethicone (Aluminum/Magnesium/Simeth (Maalox Max) 30 Ml Udc) 30 ml PO Q6H PRN PRN Reason: Indigestion Stop: 11/12/25 23:19 Last Admin: 10/14/25 09:07 Dose: 30 ml Documented By: Admin: 10/13/25 23:32 Dose: 30 ml Documented By: PATRICA Allopurinol (Allopurinol 300 Mg Tab) 300 mg PO QPM GRACIE Stop: 11/10/25 20:59 Last Admin: 10/13/25 22:02 Dose: 300 mg Documented By: Admin: 10/12/25 20:54 Dose: 300 mg Documented By: Admin: 10/11/25 21:37 Dose: 300 mg Documented By: RE Bisacodyl (Bisacodyl 10 Mg Supp) 10 mg MD DAILY PRN PRN Reason: Constipation Stop: 11/10/25 12:32 Last Admin: 10/13/25 22:02 Dose: 10 mg Documented By: PATRICA Famotidine (Famotidine 20 Mg Tab) 20 mg PO Q12H PRN PRN Reason: Dyspepsia Stop: 11/10/25 12:32 Last Admin: 10/12/25 21:00 Dose: 20 mg Documented By: YESENIA Metoprolol Tartrate (Metoprolol Tartrate 25 Mg Tab) 25 mg PO BID GRACIE Stop: 11/10/25 20:59 Last Admin: 10/14/25 09:00 Dose: 25 mg Documented By: Admin: 10/13/25 22:02 Dose: 25 mg Documented By: Admin: 10/13/25 08:42 Dose: 25 mg Documented By: Admin: 10/12/25 20:54 Dose: 25 mg Documented By: Admin: 10/12/25 12:28 Dose: 25 mg Documented By: Admin: 10/11/25 21:38 Dose: 25 mg Documented By: RE Oxycodone HCl (Oxycodone Hcl Ir 5 Mg Tab (Immediate Release)) 5 - 10 mg PO Q4H PRN PRN Reason: MOD/SEV Pain & Pre PT Stop: 10/25/25 12:32 Last Admin: 10/12/25 20:54 Dose: 10 mg Documented By: YESENIA Saccharomyces Boulardii (Saccharomyces Boulardii 250 Mg Cap) 250 mg PO QAM GRACIE Stop: 11/11/25 08:59 Last Admin: 10/14/25 09:01 Dose: 250 mg Documented By: Admin: 10/13/25 08:42 Dose: 250 mg Documented By: Admin: 10/12/25 09:04 Dose: 250 mg Documented By: EDEL Senna/Docusate Sodium (Docusate Sodium/Senna 50/8.6mg Tab) 2 tab PO HS GRACIE Stop: 11/10/25 20:59 Last Admin: 10/13/25 22:01 Dose: 2 tab Documented By: Admin: 10/12/25 20:54 Dose: 2 tab Documented By: Admin: 10/11/25 21:38 Dose: 2 tab Documented By: RE Vitamin D (Cholecalciferol 25 Mcg (1000 Units) Tab) 50 mcg PO DAILY GRACIE Stop: 11/11/25 08:59 Last Admin: 10/14/25 09:00 Dose: 50 mcg Documented By: Admin: 10/13/25 08:42 Dose: 50 mcg Documented By: Admin: 10/12/25 09:03 Dose: 50 mcg Documented By: EDEL
== END 2025-10-14 13:06 | disposition home or self-care (01) | DRG 402 ==
LOC: ASU 07:48 → 3E 11:22